=== PATIENT | female | born 1950 | race Caucasian/White ===

== ENCOUNTER 2016-12-10 05:38 | Inpatient (IN) | payer BC, OTHER ==
[~2016-12-10] VITALS: Ht 165.1 cm; Wt 66.3 kg
[2016-12-10] MEDS ORDERED: OPTIRAY 320 IV PRN (06:00)
--- NOTE | 2016-12-10 06:03 | EMERGENCY ROOM VISIT NOTE ---
History Report prepared by Rohan: Deep Garcia Under the Supervision of: Dr. Brianna Sagastume D.O. First contact with patient: 05:47 Chief Complaint: ABDOMINAL PAIN Stated Complaint: PAIN LWR MDL STOMACH MOVED TO LWR RT SIDE History of Present Illness The patient is a 66 year old female who presents to the Emergency Room with complaints of waxing and waning abdominal pain for the past 3 days. The patient describes the discomfort in the middle of her lower abdomen and states that she was having very sharp pains. The patient also complains of nausea and vomiting and feeling hot. She states that she had similar symptoms 2 months ago, but they were not as severe. The discomfort has progressively moved to her lower right side over the past few days.The patient also complains of constipation and states that she has had decreased food and fluid intake since the discomfort started. She has been taking Tylenol which has helped relieve her symptoms somewhat. She denies sore throat, cough, or urinary symptoms at this time. Source of History: patient Onset: 3 days ago Position: abdomen (RLQ) Symptom Intensity: severe Quality: sharp Timing: waxes/wanes Associated Symptoms: + nausea, + vomiting, No cough, No sorethroat, No urinary symptoms Note: Other associated symptoms: feeling hot, constipated, decreased appetite and fluid intake Review of Systems See HPI for pertinent positives & negatives. A total of 10 systems reviewed and were otherwise negative. Past Medical & Surgical Medical Problems: (1) Skin problem (2) Tonsillectomy planned Surgical Problems: (1) H/O adenoidectomy Family History FH: cancer FH: diabetes mellitus FH: gallbladder disease FH: heart disease FH: hypertension Social History Smoking Status: Never Smoker Alcohol Use: none Marital Status: Housing Status: lives with significant other Occupation Status: employed Current/Historical Medications No Active Prescriptions or Reported Meds Allergies Uncoded Allergies: ENVIRONMENTAL (Adverse Reaction, Intermediate, various, 12/10/16) Physical Exam Vital Signs Date Time Temp Pulse Resp B/P Pulse Ox O2 Delivery O2 Flow Rate FiO2 12/10/16 06:39 81 20 133/73 93 Room Air 12/10/16 05:40 37.4 86 18 139/83 96 Room Air Physical Exam HEENT: Head - normocephalic and atraumatic Pupils are equal, round, and reactive to light. Extraocular eye muscles are intact, and sclera are anicteric. Nose - moist nasal mucosa without discharge. Mouth - moist buccal mucosa. Oropharynx is nonerythematous and there is no tonsillar exudate or edema noted. Neck: Supple; no JVD, nuchal rigidity, cervical lymphadenopathy. Heart: Regular rate and rhythm. There is a normal S1 and S2 with no murmurs, clicks, or gallops appreciated. Lungs: Clear to auscultation bilaterally with no wheezes, rales, or rhonchi. Abdomen: Soft, exquisite tenderness in RLQ, nondistended, with good bowel sounds. There are no palpable pulsatile masses or hepatosplenomegaly. There is no guarding, rigidity, or rebound noted. Extremities: No evidence of cyanosis, clubbing, or edema. There are easily palpable peripheral pulses. Skin: warm and dry with good turgor and no rashes. Medical Decision & Procedures ER Provider Diagnostic Interpretation: CT results as stated below per my review and radiologist interpretation: CT OF THE ABDOMEN AND PELVIS WITH CONTRAST CLINICAL HISTORY: Right lower quadrant pain. COMPARISON STUDY: None. TECHNIQUE: Following IV administration of 119 mL of Optiray-320, axial images of the abdomen and pelvis were obtained from the lung bases to the proximal femurs. Images were reviewed in the axial, sagittal, and coronal planes. IV contrast was administered without complication. CT DOSE: 250.14 mGy.cm FINDINGS: Visualized portions of the lower chest demonstrate a segmental pulmonary embolus within the right lower lobe. A subpleural opacity within the right lower lobe favors an infarct. The liver, spleen, adrenal glands and pancreas are normal. There are multiple subcentimeter renal lesions which are too small to characterize. There is no evidence for a bowel obstruction. The appendix is normal. There is sigmoid diverticulosis. Note is made of a 4 x 2.2 cm fluid and gas containing pelvic fluid collection adjacent to the mid sigmoid colon which is consistent with an abscess. There is adjacent infiltration. Findings reflect acute diverticulitis with associated abscess. The endometrium appears thickened. No suspicious skeletal lesions are identified. IMPRESSION: 1. Right lower lobe segmental pulmonary embolus, likely acute, and a subpleural opacity within the right lower lobe suggestive of a pulmonary infarct. 2. Findings consistent with acute sigmoid diverticulitis with an associated 4 x 2.2 cm pericolonic abscess adjacent to the mid sigmoid colon. 3. Thickened endometrium. This could be correlated with history of postmenopausal bleeding and a follow-up nonemergent pelvic ultrasound. Electronically signed by: Vasile Sarabia M.D. 12/10/2016 6:49 AM Dictated Date/Time: 12/10/2016 6:40 AM Laboratory Results 12/10/16 06:00 Red Blood Count 4.70, Mean Corpuscular Volume 91.9, Mean Corpuscular Hemoglobin 31.1, Mean Corpuscular Hemoglobin Concent 33.8, Mean Platelet Volume 9.8, Neutrophils (%) (Auto) 84.6, Lymphocytes (%) (Auto) 8.9, Monocytes (%) (Auto) 5.4, Eosinophils (%) (Auto) 0.6, Basophils (%) (Auto) 0.2, Neutrophils # (Auto) 14.95, Lymphocytes # (Auto) 1.58, Monocytes # (Auto) 0.96, Eosinophils # (Auto) 0.10, Basophils # (Auto) 0.03 12/10/16 06:00 Test 12/10/16 06:00 12/10/16 06:11 12/10/16 07:09 White Blood Count 17.67 K/uL (4.8-10.8) Red Blood Count 4.70 M/uL (4.2-5.4) Hemoglobin 14.6 g/dL (12.0-16.0) Hematocrit 43.2 % (37-47) Mean Corpuscular Volume 91.9 fL (80-100) Mean Corpuscular Hemoglobin 31.1 pg (25-34) Mean Corpuscular Hemoglobin Concent 33.8 g/dl (32-36) Platelet Count 267 K/uL (130-400) Mean Platelet Volume 9.8 fL (7.4-10.4) Neutrophils (%) (Auto) 84.6 % Lymphocytes (%) (Auto) 8.9 % Monocytes (%) (Auto) 5.4 % Eosinophils (%) (Auto) 0.6 % Basophils (%) (Auto) 0.2 % Neutrophils # (Auto) 14.95 K/uL (1.4-6.5) Lymphocytes # (Auto) 1.58 K/uL (1.2-3.4) Monocytes # (Auto) 0.96 K/uL (0.11-0.59) Eosinophils # (Auto) 0.10 K/uL (0-0.5) Basophils # (Auto) 0.03 K/uL (0-0.2) RDW Standard Deviation 45.9 fL (36.4-46.3) RDW Coefficient of Variation 13.6 % (11.5-14.5) Immature Granulocyte % (Auto) 0.3 % Immature Granulocyte # (Auto) 0.05 K/uL (0.00-0.02) Est Creatinine Clear Calc Drug Dose 56.1 ml/min Estimated GFR () 77.8 Estimated GFR (Non- 67.1 BUN/Creatinine Ratio 14.7 (10-20) Calcium Level 9.1 mg/dl (8.5-10.1) Total Bilirubin 1.1 mg/dl (0.2-1) Aspartate Amino Transf (AST/SGOT) 23 U/L (15-37) Alanine Aminotransferase (ALT/SGPT) 44 U/L (12-78) Alkaline Phosphatase 136 U/L (45-117) Total Protein 8.0 gm/dl (6.4-8.2) Albumin 3.5 gm/dl (3.4-5.0) Globulin 4.5 gm/dl (2.5-4.0) Albumin/Globulin Ratio 0.8 (0.9-2) Lipase 65 U/L (73-393) Bedside Hemoglobin 15.3 g/dl (12.0-16.0) Bedside Hematocrit 45 % (37-47) Bedside Sodium 139 mEq/L (135-144) Bedside Potassium 3.5 mEq/L (3.3-5.0) Bedside Chloride 99 mEq/L (101-112) Bedside Total CO2 27 mEq/l (24-31) Anion Gap 18.0 mmol/L (16-25) Bedside Blood Urea Nitrogen 14 mg/dl (7-18) Bedside Creatinine 0.8 mg/dl (0.6-1.3) Bedside Glucose (other) 108 mg/dl (70-99) Bedside Ionized Calcium (Arely) 1.10 mmol/l (1.12-1.32) Laboratory results per my review. Medications Administered Medications (Trade) Dose Ordered Sig/Marilou Route Start Time Stop Time Status Last Admin Dose Admin Hydromorphone HCl (Dilaudid Inj) 1 mg NOW STAT IV 12/10/16 06:50 12/10/16 06:51 DC 12/10/16 06:54 1 MG Procedure Dilaudid Inj IV Zosyn Iv IV Heparin Drip ED Course 0549: Past medical records reviewed. The patient was evaluated in room B3. A complete history and physical exam was performed. An IV lock was initiated and labs were drawn as above. I-STAT was obtained and creatinine was normal. The patient will go for a CT scan of the abdomen/pelvis to rule out diverticulitis and appendicitis. 0638: At this time, I reevaluated the patient and she was having some pain. Medications will be ordered for the patient. 0650: Ordered Dilaudid Inj 1 mg IV. 0655: At this time, I reevaluated the patient and updated her on her results. After her results, the patient still denies having chest pain or shortness of breath at this time. 0700: Ordered Zosyn Iv 4.5 gm IV. 0701: At this time, I discussed the patient's case with Dr. Huber - General Surgery [facility] [place] and he recommended keeping the patient here and said he would consult with Medicine. He advised starting the patient on a Heparin Drip would be okay. 0705: A Heparin Drip was started on the patient. 0706: At this time, I discussed the patient's case with Dr. Pillai - Hospitalist [facility] [place] and she agreed to accept the patient for further evaluation. Medical Decision The patient is a 66 year old female who presents to the ED with abdominal pain. Differential diagnosis includes appendicitis, diverticulitis, colitis, or cystitis. Labs reviewed by me: white count 17.6, 84% neutrophils, stable H&H,normal renal function, glucose 108, lipase normal, total bilirubin 1.1, alkaline phosphatase 136, normal transanimases. I attest that I have personally reviewed the patient's current medication list - she is not on any medications. Patient was found to have normal blood pressure on screening and does not require follow-up. The patient presents with right lower quadrant abdominal pain. CT scan reveals evidence of a diverticular abscess with associated diverticulitis. Incidentally , the patient was noted to have right lower pulmonary emboli with presumed pulmonary infarct. I added blood cultures. She received IV antibiotics. She is in no acute respiratory distress. She has no chest pain on exam. Consults Time Called: [phone] Consulting Physician: Dr. Huber - General Surgery [facility] [place] Returned Call: [phone] At this time, I discussed the patient's case with Dr. Huber and he recommended keeping the patient here and said he would consult with Medicine. He advised starting the patient on a Heparin Drip. Additional Consults: Time Called: 701 Consulted Physician: Dr. Pillai - Hospitalist [facility] [place] Returned Call: [phone] Additional Comments: At this time, I discussed the patient's case with Dr. Pillai and she agreed to accept the patient for further evaluation. Impression Primary Impression: Colonic diverticular abscess Additional Impressions: Pulmonary embolism Pulmonary infarct Scribe Attestation The scribe's documentation has been prepared under my direction and personally reviewed by me in its entirety. I confirm that the note above accurately reflects all work, treatment, procedures, and medical decision making performed by me. Departure Information Dispostion Being Evaluated By Hospitalist Prescriptions No Active Prescriptions or Reported Meds Referrals Krunal Kimbrough M.D. (PCP) Problem Qualifiers
[2016-12-10 06:14] LABS: BASO % 0.2 %; BASO ABS # 0.03 K/uL (0-0.2); COMPLETE YES; EOS % 0.6 %; HEMATOCRIT 43.2 % (37-47); IG% 0.3 %; LYMPH % 8.9 %; LYMPH ABS # 1.58 K/uL (1.2-3.4); MEAN CELL VOLUME 91.9 fL (80-100); MEAN CORPUSCULAR HEMOGLOBIN 31.1 pg (25-34); MEAN CORPUSCULAR HGB CONC 33.8 g/dl (32-36); MEAN PLATELET VOLUME 9.8 fL (7.4-10.4); MONO % 5.4 %; NEUT % 84.6 %; PLATELET COUNT 267 K/uL (130-400); WHITE BLOOD COUNT 17.67 K/uL (4.8-10.8)
[2016-12-10 06:24] LABS: ISTAT CREATININE 0.8 mg/dl (0.6-1.3); ISTAT HEMOGLOBIN 15.3 g/dl (12.0-16.0); ISTAT IONIZED CALCIUM 1.1 mmol/l (1.12-1.32)
[2016-12-10 06:28] LABS: BUN/CREATININE RATIO 14.7 (10-20); CALCIUM 9.1 mg/dl (8.5-10.1); CREATININE 0.9 mg/dl (0.60-1.20); POTASSIUM 3.5 mmol/L (3.5-5.1)
[2016-12-10 06:31] LABS: ALB/GLOB RATIO 0.8 (0.9-2)
[2016-12-10] MEDS ORDERED: HYDROmorphone INJ 1 MG/ML SYR IV STA (06:50)
--- NOTE | 2016-12-10 06:50 | DIAGNOSTIC IMAGING REPORT ---
CT OF THE ABDOMEN AND PELVIS WITH CONTRAST CLINICAL HISTORY: Right lower quadrant pain. COMPARISON STUDY: None. TECHNIQUE: Following IV administration of 119 mL of Optiray-320, axial images of the abdomen and pelvis were obtained from the lung bases to the proximal femurs. Images were reviewed in the axial, sagittal, and coronal planes. IV contrast was administered without complication. CT DOSE: 250.14 mGy.cm FINDINGS: Visualized portions of the lower chest demonstrate a segmental pulmonary embolus within the right lower lobe. A subpleural opacity within the right lower lobe favors an infarct. The liver, spleen, adrenal glands and pancreas are normal. There are multiple subcentimeter renal lesions which are too small to characterize. There is no evidence for a bowel obstruction. The appendix is normal. There is sigmoid diverticulosis. Note is made of a 4 x 2.2 cm fluid and gas containing pelvic fluid collection adjacent to the mid sigmoid colon which is consistent with an abscess. There is adjacent infiltration. Findings reflect acute diverticulitis with associated abscess. The endometrium appears thickened. No suspicious skeletal lesions are identified. IMPRESSION: 1. Right lower lobe segmental pulmonary embolus, likely acute, and a subpleural opacity within the right lower lobe suggestive of a pulmonary infarct. 2. Findings consistent with acute sigmoid diverticulitis with an associated 4 x 2.2 cm pericolonic abscess adjacent to the mid sigmoid colon. 3. Thickened endometrium. This could be correlated with history of postmenopausal bleeding and a follow-up nonemergent pelvic ultrasound. Electronically signed by: Vasile Sarabia M.D. 12/10/2016 6:49 AM Dictated Date/Time: 12/10/2016 6:40 AM
[2016-12-10] MEDS ORDERED: PIPERACILLIN/TAZOBACTAM 4.5 GM/100ML D5W IV STA (07:00)
[2016-12-10 07:23] LABS: PARTIAL THROMBOPLASTIN RATIO 1.2; PROTHROMBIN TIME (PATIENT) 10.3 SECONDS (9.0-12.0)
[2016-12-10 07:34] VITALS: O2SAT 96; Ht 165.1 cm; Wt 66.3 kg
--- NOTE | 2016-12-10 07:40 | Medical Consult ---
Consultation Date of Consultation: December 10, 2016. Attending Physician: Reason for Consultation: perforated diverticulitis History of Present Illness presents to ER with abd pain over 2-3 days- w/u shows diverticulitis with 4x2 cm pelvic abscess, no ascites or free air. also Rt lung PE w/ infarct Past Medical/Surgical History Medical Problems: (1) Colonic diverticular abscess Status: Acute (2) Pulmonary embolism Status: Acute (3) Pulmonary infarct Status: Acute Family History FH: cancer FH: diabetes mellitus FH: gallbladder disease FH: heart disease FH: hypertension Social History Smoking Status: Never Smoker Marital Status: Housing Status: lives with significant other Occupation Status: employed Allergies Uncoded Allergies: ENVIRONMENTAL (Adverse Reaction, Intermediate, various, 12/10/16) Current Inpatient Medications Current Inpatient Medications Medications (Trade) Dose Ordered Sig/Marilou Route Start Time Stop Time Status Last Admin Dose Admin Ioversol (Optiray 320) 125 ml UD PRN IV 12/10/16 06:00 12/14/16 05:59 Heparin Sodium/ Dextrose 1 ea Q30M N/A 12/10/16 07:30 12/10/16 23:59 Review of Systems Constitutional: No fever Respiratory: No cough, No shortness of breath Cardiovascular: No chest pain Abdomen: + pain, No vomiting Genitourinary - Female: No dysuria Neurologic: No weakness Hematologic / Lymphatic: No abnormal bleeding/bruising, No clotting problems Integumentary: No rash Physical Exam Date Time Temp Pulse Resp B/P Pulse Ox O2 Delivery O2 Flow Rate FiO2 12/10/16 06:39 81 20 133/73 93 Room Air 12/10/16 05:40 37.4 86 18 139/83 96 Room Air afeb, vss General Appearance: no apparent distress Eyes: sclerae normal Neck: supple Respiratory/Chest: normal breath sounds Cardiovascular: regular rate, rhythm Abdomen/GI: soft, + tenderness (mostly RLQ) Extremities/Musculoskelatal: no calf tenderness, no pedal edema Neurologic/Psych: alert Skin: no rash Laboratory Results Last 24 Hours Test 12/10/16 06:00 12/10/16 06:11 12/10/16 07:28 White Blood Count 17.67 K/uL Red Blood Count 4.70 M/uL Hemoglobin 14.6 g/dL Hematocrit 43.2 % Mean Corpuscular Volume 91.9 fL Mean Corpuscular Hemoglobin 31.1 pg Mean Corpuscular Hemoglobin Concent 33.8 g/dl Platelet Count 267 K/uL Mean Platelet Volume 9.8 fL Neutrophils (%) (Auto) 84.6 % Lymphocytes (%) (Auto) 8.9 % Monocytes (%) (Auto) 5.4 % Eosinophils (%) (Auto) 0.6 % Basophils (%) (Auto) 0.2 % Neutrophils # (Auto) 14.95 K/uL Lymphocytes # (Auto) 1.58 K/uL Monocytes # (Auto) 0.96 K/uL Eosinophils # (Auto) 0.10 K/uL Basophils # (Auto) 0.03 K/uL RDW Standard Deviation 45.9 fL RDW Coefficient of Variation 13.6 % Immature Granulocyte % (Auto) 0.3 % Immature Granulocyte # (Auto) 0.05 K/uL Prothrombin Time 10.3 SECONDS Prothromb Time International Ratio 1.0 Activated Partial Thromboplast Time 30.6 SECONDS Partial Thromboplastin Ratio 1.2 Sodium Level 140 mmol/L Potassium Level 3.5 mmol/L Chloride Level 103 mmol/L Carbon Dioxide Level 30 mmol/L Anion Gap 7.0 mmol/L 18.0 mmol/L Blood Urea Nitrogen 13 mg/dl Creatinine 0.90 mg/dl Est Creatinine Clear Calc Drug Dose 56.1 ml/min Estimated GFR () 77.8 Estimated GFR (Non- 67.1 BUN/Creatinine Ratio 14.7 Random Glucose 104 mg/dl Calcium Level 9.1 mg/dl Total Bilirubin 1.1 mg/dl Aspartate Amino Transf (AST/SGOT) 23 U/L Alanine Aminotransferase (ALT/SGPT) 44 U/L Alkaline Phosphatase 136 U/L Total Protein 8.0 gm/dl Albumin 3.5 gm/dl Globulin 4.5 gm/dl Albumin/Globulin Ratio 0.8 Lipase 65 U/L Bedside Hemoglobin 15.3 g/dl Bedside Hematocrit 45 % Bedside Sodium 139 mEq/L Bedside Potassium 3.5 mEq/L Bedside Chloride 99 mEq/L Bedside Total CO2 27 mEq/l Bedside Blood Urea Nitrogen 14 mg/dl Bedside Creatinine 0.8 mg/dl Bedside Glucose (other) 108 mg/dl Bedside Ionized Calcium (Arely) 1.10 mmol/l Assessment & Plan 12/10/16- pt w/ acute diverticulitis w/ contained abscess in pelvis- difficult location for IR- initial treatment would be NPO, then clear liquids, IV atbx- Zosyn, Flagyl- may need PICC for home IV atbx. re CT 3-4 days IV anticoagulants (Heparin) initially until sure abd stable. IF abscess enlarges- transfer for IR. Consider Heme consult to address PE/DVT will need 5-7 days in hospital
[2016-12-10] MEDS ORDERED: HEPARIN SOD 5000 UNIT/0.5 ML CARP ONE (07:44)
[2016-12-10] MEDS ORDERED: HEPARIN 25000 UNIT/500 ML D5W ONE (07:44)
[2016-12-10] MEDS ORDERED: SODIUM CHLORIDE 0.9% 1000ML 1,000 ML IV SCH (07:55)
[2016-12-10] MEDS ORDERED: MAGNESIUM HYDROXIDE SUSP 30 ML UDC PO PRN (08:00)
[2016-12-10] MEDS ORDERED: POLYETHYLENE (MIRALAX) 17 GM PACK PO PRN (08:00)
[2016-12-10] MEDS ORDERED: ALUMINUM/MAGNESIUM/SIMETH (MAALOX MAX) 30 ML UDC PO PRN (08:00)
[2016-12-10] MEDS ORDERED: ONDANSETRON INJ 2 MG/ML 2 ML VIAL IV PRN (08:00)
[2016-12-10] MEDS ORDERED: HYDROmorphone INJ 2 MG/ML SYR/VIAL IV PRN (08:15)
[2016-12-10] MEDS ORDERED: HYDROmorphone INJ 1 MG/ML SYR IV PRN ×2 (08:15)
--- NOTE | 2016-12-10 08:23 | History and Physical ---
History & Physical Date & Time of Service: December 10, 2016 at 08:19 Chief Complaint: Pain Lwr Mdl Stomach Moved To Lwr Rt Side Primary Care Physician: Krunal Kimbrough M.D. History of Present Illness Source: patient Ms. Guzmán is a 66 y/o Post-Menopausal female with an unremarkable PMHx except for vitiligo who presents to the ED complaining of abdominal pain x 3 days. Pain came on suddenly and originated periumbilically then moved to the RLQ which it has remained. She describes the pain as a waxing and waning sharp sensation that can exacerbate to a 10/10. Aggravated by palpation and alleviated minimally with Tylenol. Associated nausea and vomiting with last emesis on . Associated poor oral intake and constipation with last BM on without evidence of melena/hematochezia. She reports similar symptoms in September that lasted a couple days and subsided but the pain was not as severe at that time. After those symptoms subsided she felt her normal self up until these last couple of days. ED imaging revealed acute diverticulitis with fluid and gas filled abscess. Incidentally, R segmental pulmonary emboli noted with RLL infarct. She denies H/O clotting disorders or DVT/PE personally and in the family. As well, CT showed a thickened endometrium and patient denies post-menopausal bleeding. Does report a FMHx of a mother with cancerous uterine tumor who was on hormonal replacement therapy. Past Medical/Surgical History Medical Problems: (1) Skin problem Status: Chronic (2) Tonsillectomy planned Status: Resolved Surgical Problems: (1) H/O adenoidectomy Status: Resolved Family History FH: cancer MOTHER (Uterine Tumor) FH: diabetes mellitus FH: gallbladder disease FH: heart disease FH: hypertension Social History Smoking Status: Never Smoker Smokeless Tobacco Use: No Drug Use: none Marital Status: Occupational Status: employed Multi-Drug Resistant Organisms History of MDRO: No Allergies Uncoded Allergies: ENVIRONMENTAL (Adverse Reaction, Intermediate, various, 12/10/16) Home Medications No Active Prescriptions or Reported Meds Review of Systems Constitutional: + fever, + problem reported ("feel hot"), No chills Eyes: No worsening of vision ENT: No nasal symptoms, No sore throat, No trouble swallowing Respiratory: No cough, No shortness of breath, No wheezing Cardiovascular: No chest pain, No palpitations Abdomen: + nausea, + pain (mid-abdomen with movement to RLQ), + problem reported (Last BM ), + vomiting (last emesis ), No constipation , No diarrhea Musculoskeletal: No calf pain, No swelling Genitourinary - Female: No dysuria, No vaginal bleeding Neurologic: No vertigo Hematologic / Lymphatic: No abnormal bleeding/bruising, No clotting problems Integumentary: No new/changing skin lesions, No rash Allergic / Immunologic: + environmental allergies Physical Exam Vital Signs Date Time Temp Pulse Resp B/P Pulse Ox O2 Delivery O2 Flow Rate FiO2 12/10/16 06:39 81 20 133/73 93 Room Air 12/10/16 05:40 37.4 86 18 139/83 96 Room Air General Appearance: WD/WN, no apparent distress Head: normocephalic, atraumatic Eyes: sclerae normal ENT: hearing grossly normal Neck: supple, no JVD, trachea midline Respiratory/Chest: lungs clear, no respiratory distress, no accessory muscle use, + decreased breath sounds (minimally decreased in R base) Cardiovascular: regular rate, rhythm, no gallop, no murmur Abdomen/GI: normal bowel sounds, soft Back: normal inspection, no CVA tenderness Extremities/Musculoskelatal: no calf tenderness, no pedal edema Neurologic/Psych: no motor/sensory deficits, alert, oriented x 3 Skin: normal color, warm/dry, + pertinent finding (vitiligo) Diagnostics Laboratory Results Results Past 24 Hours Test 12/10/16 06:00 12/10/16 06:11 12/10/16 07:23 12/10/16 07:28 Range/Units White Blood Count 17.67 4.8-10.8 K/uL Red Blood Count 4.70 4.2-5.4 M/uL Hemoglobin 14.6 12.0-16.0 g/dL Hematocrit 43.2 37-47 % Mean Corpuscular Volume 91.9 80-100 fL Mean Corpuscular Hemoglobin 31.1 25-34 pg Mean Corpuscular Hemoglobin Concent 33.8 32-36 g/dl Platelet Count 267 130-400 K/uL Mean Platelet Volume 9.8 7.4-10.4 fL Neutrophils (%) (Auto) 84.6 % Lymphocytes (%) (Auto) 8.9 % Monocytes (%) (Auto) 5.4 % Eosinophils (%) (Auto) 0.6 % Basophils (%) (Auto) 0.2 % Neutrophils # (Auto) 14.95 1.4-6.5 K/uL Lymphocytes # (Auto) 1.58 1.2-3.4 K/uL Monocytes # (Auto) 0.96 0.11-0.59 K/uL Eosinophils # (Auto) 0.10 0-0.5 K/uL Basophils # (Auto) 0.03 0-0.2 K/uL RDW Standard Deviation 45.9 36.4-46.3 fL RDW Coefficient of Variation 13.6 11.5-14.5 % Immature Granulocyte % (Auto) 0.3 % Immature Granulocyte # (Auto) 0.05 0.00-0.02 K/uL Prothrombin Time 10.3 9.0-12.0 SECONDS Prothromb Time International Ratio 1.0 0.9-1.1 Activated Partial Thromboplast Time 30.6 21.0-31.0 SECONDS Partial Thromboplastin Ratio 1.2 Sodium Level 140 136-145 mmol/L Potassium Level 3.5 3.5-5.1 mmol/L Chloride Level 103 98-107 mmol/L Carbon Dioxide Level 30 21-32 mmol/L Anion Gap 7.0 18.0 16-25 mmol/L Blood Urea Nitrogen 13 7-18 mg/dl Creatinine 0.90 0.60-1.20 mg/dl Est Creatinine Clear Calc Drug Dose 56.1 ml/min Estimated GFR () 77.8 Estimated GFR (Non- 67.1 BUN/Creatinine Ratio 14.7 10-20 Random Glucose 104 70-99 mg/dl Calcium Level 9.1 8.5-10.1 mg/dl Total Bilirubin 1.1 0.2-1 mg/dl Aspartate Amino Transf (AST/SGOT) 23 15-37 U/L Alanine Aminotransferase (ALT/SGPT) 44 12-78 U/L Alkaline Phosphatase 136 45-117 U/L Total Protein 8.0 6.4-8.2 gm/dl Albumin 3.5 3.4-5.0 gm/dl Globulin 4.5 2.5-4.0 gm/dl Albumin/Globulin Ratio 0.8 0.9-2 Lipase 65 73-393 U/L Bedside Hemoglobin 15.3 12.0-16.0 g/dl Bedside Hematocrit 45 37-47 % Bedside Sodium 139 135-144 mEq/L Bedside Potassium 3.5 3.3-5.0 mEq/L Bedside Chloride 99 101-112 mEq/L Bedside Total CO2 27 24-31 mEq/l Bedside Blood Urea Nitrogen 14 7-18 mg/dl Bedside Creatinine 0.8 0.6-1.3 mg/dl Bedside Glucose (other) 108 70-99 mg/dl Bedside Ionized Calcium (Arely) 1.10 1.12-1.32 mmol/l Bedside Lactic Acid Venous 0.60 0.90-1.70 mmol/L Microbiology Results 12/10/16 Blood Culture, Received Pending 12/10/16 Blood Culture, Received Pending Diagnostic Radiology 1. CT OF THE ABDOMEN AND PELVIS WITH CONTRAST FINDINGS: Visualized portions of the lower chest demonstrate a segmental pulmonary embolus within the right lower lobe. A subpleural opacity within the right lower lobe favors an infarct. The liver, spleen, adrenal glands and pancreas are normal. There are multiple subcentimeter renal lesions which are too small to characterize. There is no evidence for a bowel obstruction. The appendix is normal. There is sigmoid diverticulosis. Note is made of a 4 x 2.2 cm fluid and gas containing pelvic fluid collection adjacent to the mid sigmoid colon which is consistent with an abscess. There is adjacent infiltration. Findings reflect acute diverticulitis with associated abscess. The endometrium appears thickened. No suspicious skeletal lesions are identified. IMPRESSION: 1. Right lower lobe segmental pulmonary embolus, likely acute, and a subpleural opacity within the right lower lobe suggestive of a pulmonary infarct. 2. Findings consistent with acute sigmoid diverticulitis with an associated 4 x 2.2 cm pericolonic abscess adjacent to the mid sigmoid colon. 3. Thickened endometrium. This could be correlated with history of postmenopausal bleeding and a follow-up nonemergent pelvic ultrasound. Impression Assessment and Plan Ms. Guzmán is a 66 y/o Post-Menopausal female with an unremarkable PMHx who presents to the ED complaining of abdominal pain x [address] revealed acute diverticulitis with abscess and pulmonary emboli with RLL infarct. CT with evidence of endometrum thickening. Acute Diverticulitis with Abscess: - NPO at this time and place IVF with 1/2 NSS + 20 mEq KCL at 100 mL/hr - Metronidazole 500 mg IV Q8H and Zosyn 3.375 IV Q8H - Dilaudid 0.5-2 mg IV Q4H PRN Pain - General Surg following - recommendations reviewed -- Difficult location for IR - recommending NPO then clear liquids if tolerated -- Repeat CT 3-4 days - if enlarging transfer for IR Pulmonary Emboli with RLL Infarct: Inflammation vs Endometrial CA? - Heparin bolus and drip initiated - B/L LE Venous dopplers for DVT evaluation - Consult Heme/Onc - recommendations appreciated Thickened Endometrium: Denies vaginal bleeding - CT Abd/Pelvis reviewed - will order nonemergent pelvic U/S for further evaluation DVT Prophylaxis: Heparin gtt Code Status: FULL RESUSCITATION Disposition: From home and independent - Will need co-pay evaluated in [facility] for anticoaculation warranted - May need PICC for home IV ABx per Gen Surg Level of Care Telemetry Resuscitation Status FULL RESUSCITATION VTE Prophylaxis VTE Risk Assessment Done? Y/N: Yes Risk Level: High Given or contraindicated: Other Anticoagulation (Heparin gtt) Social Service Consult None Apply Reviewed: Pt Seen/Exam by Me History Physician Electroencephalograph Technician Supervision Note: I interviewed and examined the patient. Discussed with RENAY Green and agree with findings and plan as documented in the note. Any exceptions or clarifications are listed here: Patient admitted with large diverticular abscess and incidental finding of right lower lobe segmental acute PE with pulmonary infarct. She has never had a colonoscopy. Pelvic ultrasound after admission confirmed thickened endometrial stripe of 9 mm. She has not seen [facility] or had a mammogram in over 2 years. She has a daily runner and runs 5 miles every day; she is not noticed any pain or swelling in her legs ever. She was found on bilateral lower extremity Doppler to have evidence of chronic bilateral superficial femoral vein DVTs. 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 No other significant findings of autoimmune disease. Vitals reviewed No acute distress, alert awake oriented 3 Regular rate and rhythm, no murmurs gallops or rubs Lungs clear to auscultation bilaterally, breathing unlabored Abdomen positive bowel sounds, soft, minimally tender in the right periumbilical region without guarding or rebound Extremities negative Homans sign bilaterally, no edema, 2 posterior cells pedis ulcers, no calf tenderness, arms without any edema 66-year-old very healthy and active female here with acute diverticulitis with large diverticular abscess and incidental finding of segmental right lower lobe acute PE with pulmonary infarct. She is not septic and her lactic acid is normal. -Nothing by mouth, continue IV fluids -Continue Zosyn and Flagyl and repeat CT in 3-4 days as per general surgery- appreciate them following and the recommendations -Consider transfer to [facility] for IR drainage of abscess if worsening or not improving -For her acute PE and chronic DVTs, is on heparin drip and should remain on this alone until her diverticular abscess gets sorted out. This could be from underlying malignancy or autoimmune disease. It is certainly not from a sedentary lifestyle she is a daily runner. -Will definitely need outpatient [facility] follow-up with endometrial biopsy although perhaps this would be better performed in the hospital if [facility] would prefer for her heparin drip to be off for the procedure. She also is overdue for colonoscopy-will Hemoccult her stool she is here. She is also overdue for a mammogram and she can have done as an outpatient. -Long-term anticoagulation to be determined-suggest going on Lovenox injections in case there is an underlying malignancy as this is considered standard of care Documented By: Erica Pillai
--- NOTE | 2016-12-10 09:28 | DIAGNOSTIC IMAGING REPORT ---
BILATERAL LOWER EXTREMITY VENOUS DOPPLER CLINICAL HISTORY: Pulmonary embolism. COMPARISON STUDY: No previous studies for comparison. TECHNIQUE: Sonography of the deep venous system of the bilateral lower extremities was performed. Compression and augmentation were evaluated. FINDINGS: The common femoral, superficial femoral and popliteal veins were compressible. Augmentation was normal. Flow was shown within the deep calf vessels. Stranding within the bilateral superficial femoral veins likely reflects a chronic finding. There is no evidence for acute deep venous thrombus within either lower extremity. IMPRESSION: 1. No evidence of acute deep venous thrombus within the lower extremities. 2. Stranding within the bilateral superficial femoral veins which suggests chronic thrombus. Electronically signed by: Vasile Sarabia M.D. 12/10/2016 9:27 AM Dictated Date/Time: 12/10/2016 9:25 AM
--- NOTE | 2016-12-10 09:29 | DIAGNOSTIC IMAGING REPORT ---
PELVIC ULTRASOUND CLINICAL HISTORY: Endometrium thickening on CT COMPARISON STUDY: CT of the abdomen and pelvis performed earlier today. TECHNIQUE: Transabdominal and transvaginal sonography of the pelvis was performed. FINDINGS: The uterus measures 7.2 x 3.2 x 4.4 cm. The endometrium is thickened, measuring 9 mm in thickness. Neither ovary was visualized due to suboptimal penetration. There is no free fluid. IMPRESSION: 1. Mild endometrial thickening (9 mm) in a postmenopausal patient. Correlation with history of postmenopausal bleeding is recommended. Gynecologic consultation is suggested. 2. Nonvisualization of the ovaries. Electronically signed by: Vasile Sarabia M.D. 12/10/2016 9:28 AM Dictated Date/Time: 12/10/2016 9:27 AM
--- NOTE | 2016-12-10 09:38 | DIAGNOSTIC IMAGING REPORT ---
CHEST 2 VIEWS ROUTINE CLINICAL HISTORY: Hypoxia COMPARISON STUDY: No previous studies for comparison. FINDINGS: Lung volumes are normal. There is no pneumothorax or pleural effusion. Contrast within the renal collecting systems is from recent contrast-enhanced CT. There is no evidence of pulmonary edema. Cardiac size is normal. Mediastinal contours are normal. The right lower lobe airspace opacity shown on abdominal CT is not well visualized on this exam. IMPRESSION: No acute cardiopulmonary findings. Electronically signed by: Vasile Sarabia M.D. 12/10/2016 9:37 AM Dictated Date/Time: 12/10/2016 9:36 AM
[2016-12-10 09:47] VITALS: BP 123/78; PULSE 77; TEMP 37.1; O2SAT 96
[2016-12-10] MEDS: SODIUM CHLOR 0.45% + 20MEQ KCL 1,000 ML IV SCH ×2 (11:39→21:33)
[2016-12-10] MEDS: METRONIDAZOLE / NSS 500 MG in PREMIXED NSS 100 ML IV SCH ×2 (11:39→18:25)
--- NOTE | 2016-12-10 11:39 | Oncology Consultation ---
Oncology/Heme Consultation Date of Consultation: December 10, 2016. Attending Physician: Erica Pillai MD Reason for Consultation: History (recent diagnosis) of pulmonary embolus History of Present Illness was admitted after complaining of abdominal pain or experiencing Pierre pain for the past few days. She denies any blood in her stool. She denies any weight loss. She denies any definite history of fever or shaking chills. An abdominal CT scan would reveal changes consistent with diverticulitis and perhaps paracolonic abscess. It would also reveal findings of a pulmonary embolus.. She denies really any new shortness of breath. She states she runs 5 miles a day. She denies hemoptysis. Past medical history includes hyperthyroidism and she is aware of the term Graves' disease although it's unclear as to whether this abdomen reality has been characterized as that. She also has vitiligo. Past Medical/Surgical History Medical Problems: (1) Colonic diverticular abscess Status: Acute (2) Pulmonary embolism Status: Acute (3) Pulmonary infarct Status: Acute Family History FH: cancer MOTHER (Uterine Tumor) FH: diabetes mellitus FH: gallbladder disease FH: heart disease FH: hypertension No history of blood clots or blood clotting abnormalities in the family Social History Negative for significant smoking or alcohol usage Smoking Status: Never Smoker Smokeless Tobacco Use: No Drug Use: none Marital Status: Housing Status: lives with significant other Occupation Status: employed Allergies Uncoded Allergies: ENVIRONMENTAL (Adverse Reaction, Intermediate, various, 12/10/16) Home Medications No Active Prescriptions or Reported Meds Current Inpatient Medications Current Inpatient Medications Medications (Trade) Dose Ordered Sig/Mrailou Route Start Time Stop Time Status Last Admin Dose Admin Ioversol 125 ml 125 ml UD PRN IV 12/10/16 06:00 12/14/16 05:59 Metronidazole/Prmx (Flagyl / Nss/ Premixed Nss) 100 ml @ 100 mls/hr Q8@0200,1000,1800 IV 12/10/16 10:30 12/20/16 10:29 Acetaminophen (Tylenol Tab) 650 mg Q4H PRN PO 12/10/16 08:00 01/09/17 07:59 Al Hydrox/Mg Hydrox/Simethicone (Maalox Max Susp) 15 ml Q4H PRN PO 12/10/16 08:00 01/09/17 07:59 Magnesium Hydroxide (Milk Of Magncharles Susp) 30 ml Q12H PRN PO 12/10/16 08:00 01/09/17 07:59 Ondansetron HCl (Zofran Inj) 4 mg Q6H PRN IV 12/10/16 08:00 01/09/17 07:59 Polyethylene 17 gm 17 gm DAILY PRN PO 12/10/16 08:00 01/09/17 07:59 Piperacillin Sod/ Tazobactam Sod/ Dextrose (Zosyn Iv/D5 100ml) 115 ml @ 28.75 mls/ hr Q8H IV 12/10/16 14:00 12/20/16 13:59 Hydromorphone HCl (Dilaudid Inj) 0.5 mg Q4H PRN IV 12/10/16 08:15 12/24/16 08:14 Hydromorphone HCl (Dilaudid Inj) 1 mg Q4H PRN IV 12/10/16 08:15 12/24/16 08:14 Hydromorphone HCl 2 mg 2 mg Q4H PRN IV 12/10/16 08:15 12/24/16 08:14 Potassium Chloride/Sodium Chloride 1,000 ml @ 100 mls/hr Q10H IV 12/10/16 10:30 01/09/17 10:29 Heparin Sodium/ Dextrose (Heparin 25,000 Unit/500ml D5W) 500 ml @ 22 mls/hr [id number] PRN IV 12/10/16 10:30 01/09/17 10:29 Review of Systems Constitutional: Negative for weight loss, night sweats, or fever Eyes: Negative for event change of vision ENT: Negative for epistaxis, nasal discharge, sore throat, or deafness Cardiovascular: Negative for chest pain, palpitations, dizziness, diaphoresis Respiratory: Negative for new shortness of breath,hemoptysis, or purulent cough Gastrointestinal: Negative for diarrhea, hematemesis, melena, nausea, vomiting , or dyspepsia Integumentary (skin): Negative for rash or jaundice discoloration Genitourinary: Negative for urinary frequency, hematuria, or dysuria Neurological: Negative for weakness, seizure activity, headache, or dizziness Lymphatic/Hematologic: Negative for petechiae, bleeding or new adenopathy Musculoskeletal: Negative for new joint or back pain Allergic/Immunologic: Negative for unusual rash or pruritis. Physical Exam Date Time Temp Pulse Resp B/P Pulse Ox O2 Delivery O2 Flow Rate FiO2 12/10/16 09:47 37.1 77 20 123/78 96 Room Air 12/10/16 09:27 73 16 129/73 94 12/10/16 08:37 73 12/10/16 08:28 77 16 117/66 96 Room Air 12/10/16 07:34 96 Room Air 12/10/16 06:39 81 20 133/73 93 Room Air 12/10/16 05:40 37.4 86 18 139/83 96 Room Air Constitutional: vitals are stable. Alert pleasant female Eyes: Eyes are ANSELMO EOMI without conjuctival erythema or icterus. ENT: External examination was negative for masses. Neck: Negative for masses or palpable thyromegaly Respiratory: Lung sounds were generally clear bilaterally Cardiovascular: Heart was RRR without significant murmur, gallops aoe rubs Gastrointestinal: No palpable hepatic or splenomegaly. The abdomen was soft with normal bowel sounds. Lymphatic system: there was no palpable peripheral lymphadenopathy Musculoskeletal System: The musculoskeletal system seemed concordant with age. Skin: The skin was negative for jaundice. Positive for generalized vitiligo Neurologic exam: The exam was negative for any focal findings. Deep tendon reflexes were equal and symmetrical. Psychiatric exam: Was essentially negative with normal mood and effect. Breast exam: Not done Extremities: Negative for edema erythema or tenderness Laboratory Results Last 24 Hours Test 12/10/16 06:00 12/10/16 06:11 12/10/16 07:23 White Blood Count 17.67 K/uL Red Blood Count 4.70 M/uL Hemoglobin 14.6 g/dL Hematocrit 43.2 % Mean Corpuscular Volume 91.9 fL Mean Corpuscular Hemoglobin 31.1 pg Mean Corpuscular Hemoglobin Concent 33.8 g/dl Platelet Count 267 K/uL Mean Platelet Volume 9.8 fL Neutrophils (%) (Auto) 84.6 % Lymphocytes (%) (Auto) 8.9 % Monocytes (%) (Auto) 5.4 % Eosinophils (%) (Auto) 0.6 % Basophils (%) (Auto) 0.2 % Neutrophils # (Auto) 14.95 K/uL Lymphocytes # (Auto) 1.58 K/uL Monocytes # (Auto) 0.96 K/uL Eosinophils # (Auto) 0.10 K/uL Basophils # (Auto) 0.03 K/uL RDW Standard Deviation 45.9 fL RDW Coefficient of Variation 13.6 % Immature Granulocyte % (Auto) 0.3 % Immature Granulocyte # (Auto) 0.05 K/uL Prothrombin Time 10.3 SECONDS Prothromb Time International Ratio 1.0 Activated Partial Thromboplast Time 30.6 SECONDS Partial Thromboplastin Ratio 1.2 Sodium Level 140 mmol/L Potassium Level 3.5 mmol/L Chloride Level 103 mmol/L Carbon Dioxide Level 30 mmol/L Anion Gap 7.0 mmol/L 18.0 mmol/L Blood Urea Nitrogen 13 mg/dl Creatinine 0.90 mg/dl Est Creatinine Clear Calc Drug Dose 56.1 ml/min Estimated GFR () 77.8 Estimated GFR (Non- 67.1 BUN/Creatinine Ratio 14.7 Random Glucose 104 mg/dl Calcium Level 9.1 mg/dl Total Bilirubin 1.1 mg/dl Aspartate Amino Transf (AST/SGOT) 23 U/L Alanine Aminotransferase (ALT/SGPT) 44 U/L Alkaline Phosphatase 136 U/L Total Protein 8.0 gm/dl Albumin 3.5 gm/dl Globulin 4.5 gm/dl Albumin/Globulin Ratio 0.8 Lipase 65 U/L Bedside Hemoglobin 15.3 g/dl Bedside Hematocrit 45 % Bedside Sodium 139 mEq/L Bedside Potassium 3.5 mEq/L Bedside Chloride 99 mEq/L Bedside Total CO2 27 mEq/l Bedside Blood Urea Nitrogen 14 mg/dl Bedside Creatinine 0.8 mg/dl Bedside Glucose (other) 108 mg/dl Bedside Ionized Calcium (Arely) 1.10 mmol/l Bedside Lactic Acid Venous 0.60 mmol/L Assessment & Plan CT of the abdomen has changes consistent with right lower lobe pulmonary embolus as well as sigmoid diverticulitis and perhaps a pericolonic abscess. She currently is on heparin and would continue on that for now. Baseline PT and PTT are acceptable as his platelet count. I understand a repeat CT is being planned the next few days to see if this potential abscess is responding. If surgery is needed and an IVC filter will need to be placed. Dopplers of the lower extremities are suggestive changes of perhaps chronic thrombus of superficial femoral vein. She was unaware of any blood clotting issues in the past. If surgery is not needed than 3 months of anticoagulation seems reasonable. Because of her vitiligo and possible Graves' disease background anticardiopliin ab IgG and IgM will be drawn as well as an DANN. For now I would consider this a provoked thromboembolic incident
[2016-12-10] MEDS: PIPERACILL/TAZOBAC IV 3.375 GM in DEXTROSE 5% 100ML 100 ML IV SCH ×2 (14:32→21:32)
[2016-12-10 14:59] VITALS: BP 111/70; PULSE 74; TEMP 37.1; O2SAT 94
[2016-12-10] MEDS: ACETAMINOPHEN 325 MG TAB PO PRN (16:07)
[2016-12-10 16:19] LABS: PARTIAL THROMBOPLASTIN RATIO 1.8
[2016-12-10 19:59] LABS: URINE APPEARANCE CLEAR (CLEAR); URINE BILIRUBIN NEG (NEG); URINE COLOR DK YELLOW; URINE EPITHELIAL CELL AUTO >30 /lpf (0-5); URINE NITRITE NEG (NEG); URINE SPECIFIC GRAVITY > 1.045 (1.000-1.030); UROBILINOGEN NEG (NEG)
[2016-12-10 20:00] VITALS: O2SAT 94
[2016-12-10 20:02] VITALS: BP 120/75; PULSE 99; TEMP 37; O2SAT 97
[2016-12-10 20:02] LABS: MANUAL MICROSCOPIC REQUIRED? NO; REVIEW REQ? NO
[2016-12-10 23:00] VITALS: BP 115/70; PULSE 71; TEMP 36.9; O2SAT 95
[2016-12-11] VITALS (10 sets, daily range): BP systolic 108–166; BP diastolic 70–78; PULSE 68–83; TEMP 36.8–37.5; O2SAT 91–96
[2016-12-11] MEDS: ACETAMINOPHEN 325 MG TAB PO PRN (01:46)
[2016-12-11] MEDS: METRONIDAZOLE / NSS 500 MG in PREMIXED NSS 100 ML IV SCH ×3 (01:46→18:24)
[2016-12-11] MEDS: PIPERACILL/TAZOBAC IV 3.375 GM in DEXTROSE 5% 100ML 100 ML IV SCH ×3 (04:58→22:16)
[2016-12-11] MEDS: HEPARIN 25,000 UNIT/500ML D5W 500 ML IV PRN ×2 (04:58→08:32)
--- NOTE | 2016-12-11 07:00 | Surgery Progress Note ---
Surgery Progress Note Date of Service December 11, 2016. Subjective minimal abd pain- feels ok on IV Heparin Objective Vital Signs: Date Time Temp Pulse Resp B/P Pulse Ox O2 Delivery O2 Flow Rate FiO2 12/11/16 04:00 36.8 78 20 120/76 96 Room Air 12/11/16 04:00 94 Room Air 12/11/16 00:00 94 Room Air 12/10/16 23:00 36.9 71 16 115/70 95 Room Air 12/10/16 20:02 37.0 99 20 120/75 97 Room Air 12/10/16 20:00 94 Room Air 12/10/16 16:29 Room Air 12/10/16 14:59 37.1 74 18 111/70 94 Room Air 12/10/16 12:00 Room Air 12/10/16 09:47 37.1 77 20 123/78 96 Room Air 12/10/16 09:27 73 16 129/73 94 12/10/16 08:37 73 12/10/16 08:28 77 16 117/66 96 Room Air 12/10/16 07:34 96 Room Air General Appearance: no apparent distress Respiratory/Chest: no respiratory distress Cardiovascular: regular rate, rhythm Abdomen: soft (minimal tenderness) Laboratory Results: Results Past 24 Hours Test 12/10/16 07:23 12/10/16 12:31 12/10/16 15:58 12/10/16 19:35 Range/Units Bedside Lactic Acid Venous 0.60 0.90-1.70 mmol/L Thyroid Stimulating Hormone (TSH) 0.626 0.300-4.500 uIu/ml Activated Partial Thromboplast Time 47.5 21.0-31.0 SECONDS Partial Thromboplastin Ratio 1.8 Urine Color DK YELLOW Urine Appearance CLEAR CLEAR Urine pH 5.0 4.5-7.5 Urine Specific [place] > 1.045 1.000-1.030 Urine Protein 1+ NEG Urine Glucose (UA) NEG NEG Urine Ketones 1+ NEG Urine Occult Blood NEG NEG Urine Nitrite NEG NEG Urine Bilirubin NEG NEG Urine Urobilinogen NEG NEG Urine Leukocyte Esterase TRACE NEG Urine WBC (Auto) 10-30 0-5 /hpf Urine RBC (Auto) 5-10 0-4 /hpf Urine Hyaline Casts (Auto) 1-5 0-5 /lpf Urine Epithelial Cells (Auto) >30 0-5 /lpf Urine Bacteria (Auto) NEG NEG Test 12/11/16 01:40 12/11/16 04:44 Range/Units Stool Occult Blood NEGATIVE NEGATIVE Microbiology Results 12/10/16 Blood Culture, Received Pending 12/10/16 Blood Culture, Received Pending Assessment & Plan 12/11/16- adm with diverticulitis w/ abscess- cont clear liquids only and IV meds- atbx and heparin
[2016-12-11 07:27] LABS: MEAN CORPUSCULAR HEMOGLOBIN 31.2 pg (25-34); MEAN CORPUSCULAR HGB CONC 33.9 g/dl (32-36); MEAN PLATELET VOLUME 9.5 fL (7.4-10.4); PLATELET COUNT 279 K/uL (130-400); RED BLOOD COUNT 4.13 M/uL (4.2-5.4); WHITE BLOOD COUNT 12.28 K/uL (4.8-10.8)
[2016-12-11 07:42] LABS: PARTIAL THROMBOPLASTIN RATIO 1.6
[2016-12-11] MEDS: SODIUM CHLOR 0.45% + 20MEQ KCL 1,000 ML IV SCH ×2 (08:00→15:56)
[2016-12-11 08:01] LABS: CALCIUM 8.4 mg/dl (8.5-10.1); CREATININE 0.73 mg/dl (0.60-1.20); MAGNESIUM 2.6 mg/dl (1.8-2.4); POTASSIUM 3.8 mmol/L (3.5-5.1)
[2016-12-11] MEDS ORDERED: HEPARIN IV BOLUS 2,000 UNIT in SYRINGE 0 ML IV ONE (08:45)
[2016-12-11] MEDS ORDERED: PNEUMOCOCCAL POLYSACCHARIDES 25 MCG/0.5 ML VIAL/SYR IM. ONE (09:00)
[2016-12-11] MEDS ORDERED: PNEUMOCOCCAL ADMINISTRATION CHARGE ONE (09:00)
--- NOTE | 2016-12-11 12:22 | Hospitalist Progress Note ---
Hospitalist Progress Note Date of Service December 11, 2016. Subjective Pt evaluation today including: conversation w/ patient, conversation w/ family , physical exam, chart review, lab review, review of studies, review of inpatient medication list Patient seen and evaluated. No acute events overnight. Reporting pain is improved and required no pain medications overnight. Only needed Tylenol for headache related to no coffee per patient She is feeling improved and plan for repeat CT of the abdomen. Tolerating a clear liquid diet and reporting an improved appetite. States she had 6 BMs yesterday that were formed. Leukocytosis is improving. Constitutional: No chills, No fever ENT: No sore throat, No trouble swallowing Respiratory: No cough, No shortness of breath Cardiovascular: No chest pain, No palpitations Abdomen: No constipation, No diarrhea, No nausea, No pain, No vomiting Musculoskeletal: No calf pain, No swelling Female : No dysuria Neurologic: No vertigo Skin: No rash Medications Current Inpatient Medications Medications (Trade) Dose Ordered Sig/Marilou Route Start Time Stop Time Status Last Admin Dose Admin Ioversol 125 ml 125 ml UD PRN IV 12/10/16 06:00 12/14/16 05:59 Metronidazole/Prmx (Flagyl / Nss/ Premixed Nss) 100 ml @ 100 mls/hr Q8@0200,1000,1800 IV 12/10/16 10:30 12/20/16 10:29 12/11/16 10:07 100 MLS/HR Acetaminophen (Tylenol Tab) 650 mg Q4H PRN PO 12/10/16 08:00 01/09/17 07:59 12/11/16 01:46 650 MG Al Hydrox/Mg Hydrox/Simethicone (Maalox Max Susp) 15 ml Q4H PRN PO 12/10/16 08:00 01/09/17 07:59 Magnesium Hydroxide (Milk Of Magnesia Susp) 30 ml Q12H PRN PO 12/10/16 08:00 01/09/17 07:59 Ondansetron HCl (Zofran Inj) 4 mg Q6H PRN IV 12/10/16 08:00 01/09/17 07:59 Polyethylene 17 gm 17 gm DAILY PRN PO 12/10/16 08:00 01/09/17 07:59 Piperacillin Sod/ Tazobactam Sod/ Dextrose (Zosyn Iv/D5 100ml) 115 ml @ 28.75 mls/ hr Q8H IV 12/10/16 14:00 12/20/16 13:59 12/11/16 04:58 28.75 MLS/HR Hydromorphone HCl (Dilaudid Inj) 0.5 mg Q4H PRN IV 12/10/16 08:15 12/24/16 08:14 Hydromorphone HCl (Dilaudid Inj) 1 mg Q4H PRN IV 12/10/16 08:15 12/24/16 08:14 Hydromorphone HCl 2 mg 2 mg Q4H PRN IV 12/10/16 08:15 12/24/16 08:14 Potassium Chloride/Sodium Chloride 1,000 ml @ 100 mls/hr Q10H IV 12/10/16 10:30 01/09/17 10:29 12/11/16 08:00 100 MLS/HR Heparin Sodium/ Dextrose (Heparin 25,000 Unit/500ml D5W) 500 ml @ 24 mls/hr [id number] PRN IV 12/10/16 10:30 01/09/17 10:29 12/11/16 08:32 24 MLS/HR Objective Vital Signs Date Time Temp Pulse Resp B/P Pulse Ox O2 Delivery O2 Flow Rate FiO2 12/11/16 11:12 36.9 68 18 129/78 93 Room Air 12/11/16 08:10 Room Air 12/11/16 07:22 37.0 83 16 108/70 94 Room Air 12/11/16 04:00 36.8 78 20 120/76 96 Room Air 12/11/16 04:00 94 Room Air 12/11/16 00:00 94 Room Air 12/10/16 23:00 36.9 71 16 115/70 95 Room Air 12/10/16 20:02 37.0 99 20 120/75 97 Room Air 12/10/16 20:00 94 Room Air 12/10/16 16:29 Room Air 12/10/16 14:59 37.1 74 18 111/70 94 Room Air Physical Exam General Appearance: WD/WN, no apparent distress Eyes: sclerae normal ENT: hearing grossly normal Neck: supple, no JVD, trachea midline Respiratory/Chest: lungs clear, normal breath sounds, no respiratory distress, no accessory muscle use Cardiovascular: regular rate, rhythm, no gallop, no murmur Abdomen: normal bowel sounds, non tender, soft Extremities: no pedal edema, no calf tenderness Neurologic/Psychiatric: alert, oriented x 3 Skin: normal color, warm/dry Laboratory Results Last 24 Hours Test 12/10/16 12:31 12/10/16 15:58 12/10/16 19:35 12/11/16 01:40 Thyroid Stimulating Hormone (TSH) 0.626 uIu/ml Activated Partial Thromboplast Time 47.5 SECONDS Partial Thromboplastin Ratio 1.8 Urine Color DK YELLOW Urine Appearance CLEAR Urine pH 5.0 Urine Specific [place] > 1.045 Urine Protein 1+ Urine Glucose (UA) NEG Urine Ketones 1+ Urine Occult Blood NEG Urine Nitrite NEG Urine Bilirubin NEG Urine Urobilinogen NEG Urine Leukocyte Esterase TRACE Urine WBC (Auto) 10-30 /hpf Urine RBC (Auto) 5-10 /hpf Urine Hyaline Casts (Auto) 1-5 /lpf Urine Epithelial Cells (Auto) >30 /lpf Urine Bacteria (Auto) NEG Stool Occult Blood NEGATIVE Test 12/11/16 06:10 White Blood Count 12.28 K/uL Red Blood Count 4.13 M/uL Hemoglobin 12.9 g/dL Hematocrit 38.0 % Mean Corpuscular Volume 92.0 fL Mean Corpuscular Hemoglobin 31.2 pg Mean Corpuscular Hemoglobin Concent 33.9 g/dl RDW Standard Deviation 46.3 fL RDW Coefficient of Variation 13.7 % Platelet Count 279 K/uL Mean Platelet Volume 9.5 fL Activated Partial Thromboplast Time 41.9 SECONDS Partial Thromboplastin Ratio 1.6 Sodium Level 142 mmol/L Potassium Level 3.8 mmol/L Chloride Level 107 mmol/L Carbon Dioxide Level 29 mmol/L Anion Gap 6.0 mmol/L Blood Urea Nitrogen 11 mg/dl Creatinine 0.73 mg/dl Est Creatinine Clear Calc Drug Dose 69.1 ml/min Estimated GFR () 100.2 Estimated GFR (Non- 86.4 BUN/Creatinine Ratio 15.0 Random Glucose 104 mg/dl Calcium Level 8.4 mg/dl Magnesium Level 2.6 mg/dl Assessment and Plan Ms. Guzmán is a 66 y/o Post-Menopausal female with an unremarkable PMHx who presents to the ED complaining of abdominal pain x [address] revealed acute diverticulitis with abscess and pulmonary emboli with RLL infarct. CT with evidence of endometrum thickening. Acute Diverticulitis with Abscess: IMPROVING - Continue IVF today with 1/2 NSS + 20 mEq KCL at 100 mL/hr - if continued good oral intake can D/C - Metronidazole 500 mg IV Q8H and Zosyn 3.375 IV Q8H - Dilaudid 0.5-2 mg IV Q4H PRN Pain - General Surg following - recommendations reviewed -- Repeat CT 3-4 days - if enlarging transfer for IR Pulmonary Emboli with RLL Infarct: Inflammation vs Endometrial CA? 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
[2016-12-12] VITALS (7 sets, daily range): BP systolic 108–142; BP diastolic 65–86; PULSE 66–72; TEMP 36.8–36.9; O2SAT 93–97
[2016-12-12] MEDS: HEPARIN 25,000 UNIT/500ML D5W 500 ML IV PRN ×2 (01:08→23:00)
[2016-12-12] MEDS: METRONIDAZOLE / NSS 500 MG in PREMIXED NSS 100 ML IV SCH ×3 (01:51→17:48)
[2016-12-12] MEDS: SODIUM CHLOR 0.45% + 20MEQ KCL 1,000 ML IV SCH (01:52)
[2016-12-12] MEDS: PIPERACILL/TAZOBAC IV 3.375 GM in DEXTROSE 5% 100ML 100 ML IV SCH ×3 (05:44→21:49)
[2016-12-12 07:11] LABS: HEMATOCRIT 42.3 % (37-47); MEAN CELL VOLUME 92.4 fL (80-100); MEAN CORPUSCULAR HEMOGLOBIN 30.3 pg (25-34); MEAN CORPUSCULAR HGB CONC 32.9 g/dl (32-36); MEAN PLATELET VOLUME 9.9 fL (7.4-10.4); PLATELET COUNT 300 K/uL (130-400); RED BLOOD COUNT 4.58 M/uL (4.2-5.4); WHITE BLOOD COUNT 10.28 K/uL (4.8-10.8)
--- NOTE | 2016-12-12 07:21 | Surgery Progress Note ---
Surgery Progress Note Date of Service December 12, 2016. Subjective awake, alert, min abd pain- loose bms on clear liquids Objective Vital Signs: Date Time Temp Pulse Resp B/P Pulse Ox O2 Delivery O2 Flow Rate FiO2 12/12/16 04:15 36.9 66 20 120/79 96 Room Air 12/12/16 04:00 93 Room Air 12/12/16 00:00 36.9 70 18 108/65 93 Room Air 12/12/16 00:00 93 Room Air 12/11/16 20:00 91 Room Air 12/11/16 19:25 36.8 80 16 119/75 91 Room Air 12/11/16 17:49 37.1 12/11/16 16:00 95 Room Air 12/11/16 15:45 37.5 78 19 166/74 95 Room Air 12/11/16 12:00 93 Room Air 12/11/16 11:12 36.9 68 18 129/78 93 Room Air 12/11/16 08:10 Room Air 12/11/16 07:22 37.0 83 16 108/70 94 Room Air General Appearance: no apparent distress Respiratory/Chest: no respiratory distress Abdomen: soft Laboratory Results: Results Past 24 Hours Test 12/11/16 14:40 12/12/16 06:56 12/12/16 07:15 Range/Units Activated Partial Thromboplast Time 51.0 21.0-31.0 SECONDS Partial Thromboplastin Ratio 2.0 White Blood Count 10.28 4.8-10.8 K/uL Red Blood Count 4.58 4.2-5.4 M/uL Hemoglobin 13.9 12.0-16.0 g/dL Hematocrit 42.3 37-47 % Mean Corpuscular Volume 92.4 80-100 fL Mean Corpuscular Hemoglobin 30.3 25-34 pg Mean Corpuscular Hemoglobin Concent 32.9 32-36 g/dl RDW Standard Deviation 46.7 36.4-46.3 fL RDW Coefficient of Variation 13.8 11.5-14.5 % Platelet Count 300 130-400 K/uL Mean Platelet Volume 9.9 7.4-10.4 fL Assessment & Plan 12/12/16- will check c diff, cont clear liquids today, and cont IV atbx, at least 2-3 more days IV atbx w/ abscess to med surg when ok with med team po anticoagulants as per med team 12/11/16- adm with diverticulitis w/ abscess- cont clear liquids only and IV meds- atbx and heparin 12/11/16- adm with diverticulitis w/ abscess- cont clear liquids only and IV meds- atbx and heparin
[2016-12-12 07:52] LABS: BUN/CREATININE RATIO 4.9 (10-20); CALCIUM 8.9 mg/dl (8.5-10.1); CREATININE 0.87 mg/dl (0.60-1.20); MAGNESIUM 2.5 mg/dl (1.8-2.4); POTASSIUM 4.1 mmol/L (3.5-5.1)
[2016-12-12 09:09] LABS: PARTIAL THROMBOPLASTIN RATIO 1.9
[2016-12-12] MEDS ORDERED: NURSING VERBAL MED ORDER ONE (09:45)
--- NOTE | 2016-12-12 13:11 | Medical Student: [facility] ---
Med Student Progress Note Date of Service December 12, 2016. Subjective Pt evaluation today including: conversation w/ patient Pain: 0 PO Intake: clear liquids Voiding: no voiding problems Ms Hira Guzmán is a pleasant 66 yo female with acute diverticulitis complicated by a sigmoid colon abscess. A small RLL PE was also found incidentally on an abdominal CT. She was started on zosyn and metronidazol q8 and her symptoms are resolving nicely today. She has no abdominal pain, nausea, vomiting or diarrhea. She is an otherwise heathy female. She uses a standing desk with treadmill at work and runs 3-5 miles several times per week. She notes no history of previous blood clot in herself or family members. Her mother one month ago at the age of 99 and her father lived into his 90s as well. Her biggest concern regards the decision to start a NOAC, which she has agreed to begin for three months following a long discussion. She denies headache, N/V, diarrhea, constipation, chest pain or shortness of breath. She has no trouble urinating and has not had a good bowel movement secondary to liquid diet. Review of Systems Constitutional: No chills, No fatigue, No fever, No sweats, No weakness, No weight loss Eyes: No problem reported ENT: No problem reported Respiratory: No problem reported Cardiac: No problem reported Abdomen: No problem reported Musculoskeletal: No problem reported Female : No problem reported Neurologic: No problem reported Psychiatric: No problem reported Heme: No problem reported Objective Vital Signs Date Time Temp Pulse Resp B/P Pulse Ox O2 Delivery O2 Flow Rate FiO2 12/12/16 11:32 36.9 67 18 119/75 96 Room Air 12/12/16 07:53 36.8 71 20 120/75 97 Room Air 12/12/16 07:25 Room Air 12/12/16 04:15 36.9 66 20 120/79 96 Room Air 12/12/16 04:00 93 Room Air 12/12/16 00:00 36.9 70 18 108/65 93 Room Air 12/12/16 00:00 93 Room Air 12/11/16 20:00 91 Room Air 12/11/16 19:25 36.8 80 16 119/75 91 Room Air 12/11/16 17:49 37.1 12/11/16 16:00 95 Room Air 12/11/16 15:45 37.5 78 19 166/74 95 Room Air Physical Exam Comments: Vitals: See above. General: WD/WN, no acute distress. Resting comfortably. Good energy. HEENT: NCAT, EOMI, PERRLA. No anterior or posterior cervical lymphadenopathy. Moist mucus membranes. CV: S1, S2. RRR. No MRG. Periphral pulses present and equal bilaterally. Pulm: Lungs clear to auscultation in upper and lower lobes bilaterally. Good air movement. Abdomen: Soft, non-tender, non-distended. No pain to palpation. Active bowel sounds. Neuro/Psych: Alert and oriented x3. Good energy. Anxious about cause of PE, starting NOAC. Laboratory Results Last 24 Hours Test 12/11/16 14:40 12/12/16 06:56 12/12/16 07:28 Activated Partial Thromboplast Time 51.0 SECONDS 49.5 SECONDS Partial Thromboplastin Ratio 2.0 1.9 White Blood Count 10.28 K/uL Red Blood Count 4.58 M/uL Hemoglobin 13.9 g/dL Hematocrit 42.3 % Mean Corpuscular Volume 92.4 fL Mean Corpuscular Hemoglobin 30.3 pg Mean Corpuscular Hemoglobin Concent 32.9 g/dl RDW Standard Deviation 46.7 fL RDW Coefficient of Variation 13.8 % Platelet Count 300 K/uL Mean Platelet Volume 9.9 fL Sodium Level 143 mmol/L Potassium Level 4.1 mmol/L Chloride Level 109 mmol/L Carbon Dioxide Level 27 mmol/L Anion Gap 7.0 mmol/L Blood Urea Nitrogen 4 mg/dl Creatinine 0.87 mg/dl Est Creatinine Clear Calc Drug Dose 58.0 ml/min Estimated GFR () 81.0 Estimated GFR (Non- 69.9 BUN/Creatinine Ratio 4.9 Random Glucose 109 mg/dl Calcium Level 8.9 mg/dl Magnesium Level 2.5 mg/dl Assessment and Plan Assessment and Plan: Ms Sheila Guzmán is an otherwise healthy and active 66 yo female with acute diverticulitis complicated by a 2.5x4cm pericolonic sigmoid abscess on hospital day 3. An asymptomatic small RLL PE was found incidentally. She is recovering well today. Individual assessment and plan are as follows: 1. Sigmoid Diverticulitis with abscess: Acute, resolving. Showing clinical signs of improvement. On 500mg metronidazole and 3.375mg pip/tazo q8. Continue through tomorrow, with possible switch to oral abx tomorrow. Will repeat CT tomorrow. Continue with clear liquid diet today, progress tomorrow if abscess and diverticulitis are resolving. Continue to trend CBC. This is her first episode of diverticulitis. She has never had a colonoscopy. Will schedule with PCP, Dr. Tapia, as an outpatient. Discussed need for high fiber diet, no other restrictions. 2. Pulmonary embolus: Acute, small RLL. Asymptomatic. Patient is on heparin drip. Agreeable to 3 months of Xarelto. Will start tomorrow pending CT resolution of abscess. 3. Thickened endometrial lining: Noted on CT and ultrasound. Outpatient assessment specialist followup to be scheduled. 4. DVT Proph: Currently on heparin drip. Will transition to Xarelto tomorrow following CT resolution of abscess. 5. Disposition: Continued stay due to IV hydration and abx. Will repeat CT tomorrow, progress diet and switch to oral abx if continues to progress. Possible discharge tomorrow, likely . Continued [facility] stay due to: multiple IV medications needed Discharge planning: home
--- NOTE | 2016-12-12 15:13 | Progress Note ---
Subjective Date of Service: December 12, 2016. Subjective Pt evaluation today including: conversation w/ patient, physical exam, lab review, conversation w/ immigration consultant, review of inpatient medication list Pain: no abdominal pain today PO Intake: tolerating clear liquids Voiding: no voiding problems feeling well, no abdominal pain, tolerating clears, ambulating in hallway discussed repeat CT tomorrow, she agrees with plan long talk regarding oral anticoagulation, discussed that we would recommend Xarelto she now agrees to take oral AC once ready for discharge Problem List Medical Problems: (1) Colonic diverticular abscess Status: Acute (2) Pulmonary embolism Status: Acute (3) Pulmonary infarct Status: Acute Review of Systems All Other Systems: Reviewed and Negative Medications Current Inpatient Medications Medications (Trade) Dose Ordered Sig/Marilou Route Start Time Stop Time Status Last Admin Dose Admin Ioversol 125 ml 125 ml UD PRN IV 12/10/16 06:00 12/14/16 05:59 Metronidazole/Prmx (Flagyl / Nss/ Premixed Nss) 100 ml @ 100 mls/hr Q8@0200,1000,1800 IV 12/10/16 10:30 12/20/16 10:29 12/12/16 10:05 100 MLS/HR Acetaminophen (Tylenol Tab) 650 mg Q4H PRN PO 12/10/16 08:00 01/09/17 07:59 12/11/16 01:46 650 MG Al Hydrox/Mg Hydrox/Simethicone (Maalox Max Susp) 15 ml Q4H PRN PO 12/10/16 08:00 01/09/17 07:59 Magnesium Hydroxide (Milk Of Magnesia Susp) 30 ml Q12H PRN PO 12/10/16 08:00 01/09/17 07:59 Ondansetron HCl (Zofran Inj) 4 mg Q6H PRN IV 12/10/16 08:00 01/09/17 07:59 Polyethylene 17 gm 17 gm DAILY PRN PO 12/10/16 08:00 01/09/17 07:59 Piperacillin Sod/ Tazobactam Sod/ Dextrose (Zosyn Iv/D5 100ml) 115 ml @ 28.75 mls/ hr Q8H IV 12/10/16 14:00 12/20/16 13:59 12/12/16 13:59 28.75 MLS/HR Hydromorphone HCl (Dilaudid Inj) 0.5 mg Q4H PRN IV 12/10/16 08:15 12/24/16 08:14 Hydromorphone HCl (Dilaudid Inj) 1 mg Q4H PRN IV 12/10/16 08:15 12/24/16 08:14 Hydromorphone HCl 2 mg 2 mg Q4H PRN IV 12/10/16 08:15 12/24/16 08:14 Heparin Sodium/ Dextrose (Heparin 25,000 Unit/500ml D5W) 500 ml @ 24 mls/hr [id number] PRN IV 12/10/16 10:30 01/09/17 10:29 12/12/16 01:08 24 MLS/HR Objective Vital Signs Date Time Temp Pulse Resp B/P Pulse Ox O2 Delivery O2 Flow Rate FiO2 12/12/16 11:32 36.9 67 18 119/75 96 Room Air 12/12/16 07:53 36.8 71 20 120/75 97 Room Air 12/12/16 07:25 Room Air 12/12/16 04:15 36.9 66 20 120/79 96 Room Air 12/12/16 04:00 93 Room Air 12/12/16 00:00 36.9 70 18 108/65 93 Room Air 12/12/16 00:00 93 Room Air 12/11/16 20:00 91 Room Air 12/11/16 19:25 36.8 80 16 119/75 91 Room Air 12/11/16 17:49 37.1 12/11/16 16:00 95 Room Air 12/11/16 15:45 37.5 78 19 166/74 95 Room Air Physical Exam General Appearance: WD/WN, no apparent distress Eyes: normal inspection, EOMI, sclerae normal ENT: normal ENT inspection, hearing grossly normal, pharynx normal Neck: supple, no adenopathy, no JVD, trachea midline Respiratory/Chest: chest non-tender, lungs clear, normal breath sounds, no respiratory distress, no accessory muscle use Cardiovascular: regular rate, rhythm, no edema, no gallop, no JVD, no murmur Abdomen: normal bowel sounds, non tender, soft, no organomegaly Extremities: normal range of motion, non-tender, normal inspection, no pedal edema, no calf tenderness 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, no motor/sensory deficits, alert, normal mood/affect, oriented x 3 Skin: normal color, warm/dry, no rash Lymphatic: no adenopathy Laboratory Results Last 24 Hours Test 12/12/16 06:56 12/12/16 07:28 White Blood Count 10.28 K/uL Red Blood Count 4.58 M/uL Hemoglobin 13.9 g/dL Hematocrit 42.3 % Mean Corpuscular Volume 92.4 fL Mean Corpuscular Hemoglobin 30.3 pg Mean Corpuscular Hemoglobin Concent 32.9 g/dl RDW Standard Deviation 46.7 fL RDW Coefficient of Variation 13.8 % Platelet Count 300 K/uL Mean Platelet Volume 9.9 fL Sodium Level 143 mmol/L Potassium Level 4.1 mmol/L Chloride Level 109 mmol/L Carbon Dioxide Level 27 mmol/L Anion Gap 7.0 mmol/L Blood Urea Nitrogen 4 mg/dl Creatinine 0.87 mg/dl Est Creatinine Clear Calc Drug Dose 58.0 ml/min Estimated GFR () 81.0 Estimated GFR (Non- 69.9 BUN/Creatinine Ratio 4.9 Random Glucose 109 mg/dl Calcium Level 8.9 mg/dl Magnesium Level 2.5 mg/dl Activated Partial Thromboplast Time 49.5 SECONDS Partial Thromboplastin Ratio 1.9 Assessment and Plan Ms. Guzmán is a 66 y/o Post-Menopausal female with an unremarkable PMHx who presents to the ED complaining of abdominal pain x [address] revealed acute diverticulitis with abscess and pulmonary emboli with RLL infarct. CT with evidence of endometrum thickening. 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 - Consult Heme/Onc - recommendations reviewed - will treat as a provoked VTE for now - plan for 3 months of oral AC, will switch to Xarelto tomorrow once we can be sure no surgical intervention/IR needed Thickened Endometrium: Denies vaginal bleeding - Pelvic U/S - endometrium 9 mm - outpatient SAW REPAIRER needed for further evaluation DVT Prophylaxis: Heparin gtt Code Status: FULL RESUSCITATION Disposition: From home and independent - Will need co-pay evaluated in NOAC for anticoaculation warranted - d/c in 2-3 days on oral AC and oral antibiotics Continued [facility] stay due to: multiple IV medications needed Discharge planning: home
[2016-12-12] MEDS: ACETAMINOPHEN 325 MG TAB PO PRN (22:24)
[2016-12-13] MEDS: HEPARIN 25,000 UNIT/500ML D5W 500 ML IV PRN ×5 (00:04→23:15)
[2016-12-13] MEDS: METRONIDAZOLE / NSS 500 MG in PREMIXED NSS 100 ML IV SCH ×2 (01:39→10:16)
[2016-12-13] MEDS: PIPERACILL/TAZOBAC IV 3.375 GM in DEXTROSE 5% 100ML 100 ML IV SCH (05:51)
--- NOTE | 2016-12-13 06:22 | Clinical Documentation Query ---
CLINICAL DOCUMENTATION QUERY 66 year old female who presents to the Emergency Room with complaints of waxing and waning abdominal pain. 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 Daily progress notes state that PE was "provoked." A professional cardiology technician cannot assume what provoked the PE. Query#1/2 In your clinical opinion is this patient being managed for: ( x ) PE due to underlying DVTs ( ) PE and DVTs due to possible underlying cancer of unknown site. ( ) PE and DVTs due to possible underlying endometrial cancer ( ) Other explanation of clinical findings (Please Explain) ( ) Unable to determine (Please Define) ( ) Need to Discuss ( ) Not Agree The medical record reflects the following clinical findings, treatment, and risk factors. Clinical Indicators: Chest CT +PE, Venous doppler +likely chronic DVT's to bilateral femoral veins. Treatment: heme/onc consult, pelvic CT, Venous doppler, Heparin gtt, outpatient DEVELOPMENT ADVISOR appointment, Risk Factors: Age, sex, endometrial thickening on CT, family hx of uterine CA. Query #2/2 In your clinical opinion is this patient being managed for: ( x ) Bilateral chronic thrombosis of femoral vein causing PE. ( ) Other explanation of clinical findings (Please Explain) ( ) Unable to determine (Please Define) ( ) Need to Discuss ( ) Not Agree The medical record reflects the following clinical findings, treatment, and risk factors. Clinical Indicators: Venous doppler showed stranding within the bilateral superficial femoral veins which suggests chronic thrombus. Treatment: heme/onc consult, Venous doppler, Heparin gtt Risk Factors: Age, ?of underlying cancer Please clarify and document your clinical opinion in the progress notes and discharge summary. Terms such as "probable", "suspected", "likely", "questionable", "possible", or "still to be ruled out" are acceptable. IF IN AGREEMENT, YOU MUST DOCUMENT ABOVE DIAGNOSTIC STATEMENT IN DAILY PROGRESS NOTES AND DISCHARGE SUMMARY. This document is not part of the patient's record. Thank You, Richard Green RN [phone]
--- NOTE | 2016-12-13 06:38 | Surgery Progress Note ---
Surgery Progress Note Date of Service December 13, 2016. Subjective + bowel movement, + feeling well, No nausea, No vomiting c diff negative Objective Vital Signs: Date Time Temp Pulse Resp B/P Pulse Ox O2 Delivery O2 Flow Rate FiO2 12/13/16 00:05 Room Air 12/12/16 23:17 36.8 70 16 114/74 95 Room Air 12/12/16 16:01 36.8 72 17 142/86 96 Room Air 12/12/16 15:55 Room Air 12/12/16 11:32 36.9 67 18 119/75 96 Room Air 12/12/16 07:53 36.8 71 20 120/75 97 Room Air 12/12/16 07:25 Room Air General Appearance: no apparent distress Respiratory/Chest: no respiratory distress Abdomen: non tender, soft Laboratory Results: Results Past 24 Hours Test 12/12/16 06:56 12/12/16 07:28 12/13/16 04:44 Range/Units White Blood Count 10.28 4.8-10.8 K/uL Red Blood Count 4.58 4.2-5.4 M/uL Hemoglobin 13.9 12.0-16.0 g/dL Hematocrit 42.3 37-47 % Mean Corpuscular Volume 92.4 80-100 fL Mean Corpuscular Hemoglobin 30.3 25-34 pg Mean Corpuscular Hemoglobin Concent 32.9 32-36 g/dl RDW Standard Deviation 46.7 36.4-46.3 fL RDW Coefficient of Variation 13.8 11.5-14.5 % Platelet Count 300 130-400 K/uL Mean Platelet Volume 9.9 7.4-10.4 fL Sodium Level 143 136-145 mmol/L Potassium Level 4.1 3.5-5.1 mmol/L Chloride Level 109 98-107 mmol/L Carbon Dioxide Level 27 21-32 mmol/L Anion Gap 7.0 3-11 mmol/L Blood Urea Nitrogen 4 7-18 mg/dl Creatinine 0.87 0.60-1.20 mg/dl Est Creatinine Clear Calc Drug Dose 58.0 ml/min Estimated GFR () 81.0 Estimated GFR (Non- 69.9 BUN/Creatinine Ratio 4.9 10-20 Random Glucose 109 70-99 mg/dl Calcium Level 8.9 8.5-10.1 mg/dl Magnesium Level 2.5 1.8-2.4 mg/dl Activated Partial Thromboplast Time 49.5 21.0-31.0 SECONDS Partial Thromboplastin Ratio 1.9 Microbiology Results 12/12/16 C.difficile Toxin B Gene (PCR) - Final, Complete No C. difficile toxin B gene detected Assessment & Plan 12/13/16- will re CT today to assess for chgs in abscess- ask ID to see re- home atbx- may need IV with picc line. overall very stable on clear liquids 12/12/16- will check c diff, cont clear liquids today, and cont IV atbx, at least 2-3 more days IV atbx w/ abscess to med surg when ok with med team po anticoagulants as per med team 12/11/16- adm with diverticulitis w/ abscess- cont clear liquids only and IV meds- atbx and heparin 12/12/16- will check c diff, cont clear liquids today, and cont IV atbx, at least 2-3 more days IV atbx w/ abscess to med surg when ok with med team po anticoagulants as per med team 12/11/16- adm with diverticulitis w/ abscess- cont clear liquids only and IV meds- atbx and heparin
[2016-12-13] MEDS ORDERED: OPTIRAY 320 IV PRN (06:45)
[2016-12-13 07:05] VITALS: BP 156/86; PULSE 82; TEMP 36.8; O2SAT 96
[2016-12-13 08:13] LABS: PARTIAL THROMBOPLASTIN RATIO 2.3
--- NOTE | 2016-12-13 10:24 | DIAGNOSTIC IMAGING REPORT ---
CT OF THE ABDOMEN AND PELVIS WITH CONTRAST CLINICAL HISTORY: Assess diverticular abscess. Pulmonary embolism. COMPARISON STUDY: CT of the abdomen and pelvis December 10, 2016. TECHNIQUE: Following IV administration of 90 mL of Optiray-320, axial images of the abdomen and pelvis were obtained from the lung bases to the proximal femurs. Images were reviewed in the axial, sagittal, and coronal planes. IV contrast was administered without complication. Oral contrast was administered. CT DOSE: 282.35 mGy.cm FINDINGS: Visualized portions of the lower chest again demonstrate a segmental pulmonary embolus within the right lower lobe with a small right lower lobe pulmonary infarct. The liver, spleen, adrenal glands and pancreas are normal. There are numerous subcentimeter renal lesions which are too small to characterize. However, these likely reflect cysts. There is no evidence for a bowel obstruction. Note is again made of wall thickening of the mid sigmoid colon with adjacent infiltration. There is colonic diverticulosis. There is an oral contrast and gas containing tract which extends to a central pelvic fluid and gas containing collection that measures approximately 6.1 x 2.5 cm. Allowing for measurement variability, this is likely similar to CT of December 10, 2016. This abscess is located anterior to the rectosigmoid junction. Mild endometrial thickening is again noted. No additional fluid collections are present. Pelvic infiltration is similar to prior exam. Skeletal structures are unremarkable. IMPRESSION: 1. Acute diverticulitis of the mid sigmoid colon with associated oral contrast and gas containing tract extending to a diverticular abscess within the central pelvis. Allowing for measurement variability, this abscess is similar to exam of December 10, 2016. Adjacent inflammation is similar to prior exam. 2. No change in a segmental right lower lobe pulmonary embolus with associated small right lower lobe pulmonary infarct. Electronically signed by: Vasile Sarabia M.D. 12/13/2016 10:23 AM Dictated Date/Time: 12/13/2016 10:13 AM
--- NOTE | 2016-12-13 11:30 | Medical Consult ---
Consultation Date of Consultation: December 13, 2016. Attending Physician: Ayaz Degroot D.O. Reason for Consultation: Abx at home History of Present Illness Patient is a 66-year-old female who presented to the emergency department complaints of abdominal pain 3 days prior to admission. She described the pain initially as very sharp pain in her mid/lower abdomen. The patient also was experiencing sweating, nausea and vomiting. She had not moved her bowels for multiple days prior to admission. Upon admission, the patient had a CT of the abdomen/pelvis which showed acute sigmoid diverticulitis with an associated 4 x 2.2 cm pericolonic abscess adjacent to the mid sigmoid colon. She was also noted to have a right lower lobe subsegmental pulmonary embolus with right lower lobe pulmonary infarct. White blood cell count on admission was 17.67. Her creatinine was 0.90. She did have blood cultures which showed no growth to date. Her C diff toxin was negative. She did have a repeat CT scan the abdomen /pelvis today which showed continued diverticulitis of the sigmoid colon along with abscess of similar size to previous study. She is currently on IV Zosyn and tolerating this medication well. She is overall feeling much improved. She states that her abdominal pain has subsided, and she has not had any continued sweats, nausea, or vomiting. Surgery was consult fitted and noted that no surgical intervention is currently necessary. I did also discuss this patient with Dr. Degroot and Stella in Case Management. Past Medical/Surgical History Medical Problems: (1) Colonic diverticular abscess Status: Acute (2) Pulmonary embolism Status: Acute (3) Pulmonary infarct Status: Acute Medical Problems: (1) Skin problem (2) Tonsillectomy planned Surgical Problems: (1) H/O adenoidectomy Family History FH: cancer MOTHER (Uterine Tumor) FH: diabetes mellitus FH: gallbladder disease FH: heart disease FH: hypertension Noncontributory Social History Smoking Status: Never Smoker Smokeless Tobacco Use: No Drug Use: none Marital Status: Housing Status: lives with significant other Occupation Status: employed Allergies Uncoded Allergies: ENVIRONMENTAL (Adverse Reaction, Intermediate, various, 12/10/16) Home Medications Reported Home Medications Medications Dose Route/Sig Max Daily Dose Days Date Category No Active Prescriptions or Reported Medications Rx Current Inpatient Medications Current Inpatient Medications Medications (Trade) Dose Ordered Sig/Marilou Route Start Time Stop Time Status Last Admin Dose Admin Ioversol 125 ml 125 ml UD PRN IV 12/10/16 06:00 12/14/16 05:59 Metronidazole/Prmx (Flagyl / Nss/ Premixed Nss) 100 ml @ 100 mls/hr Q8@0200,1000,1800 IV 12/10/16 10:30 12/20/16 10:29 12/13/16 10:16 100 MLS/HR Acetaminophen (Tylenol Tab) 650 mg Q4H PRN PO 12/10/16 08:00 01/09/17 07:59 12/12/16 22:24 650 MG Al Hydrox/Mg Hydrox/Simethicone (Maalox Max Susp) 15 ml Q4H PRN PO 12/10/16 08:00 01/09/17 07:59 Magnesium Hydroxide (Milk Of Magnesia Susp) 30 ml Q12H PRN PO 12/10/16 08:00 01/09/17 07:59 Ondansetron HCl (Zofran Inj) 4 mg Q6H PRN IV 12/10/16 08:00 01/09/17 07:59 Polyethylene 17 gm 17 gm DAILY PRN PO 12/10/16 08:00 01/09/17 07:59 Piperacillin Sod/ Tazobactam Sod/ Dextrose (Zosyn Iv/D5 100ml) 115 ml @ 28.75 mls/ hr Q8H IV 12/10/16 14:00 12/20/16 13:59 12/13/16 05:51 28.75 MLS/HR Hydromorphone HCl (Dilaudid Inj) 0.5 mg Q4H PRN IV 12/10/16 08:15 12/24/16 08:14 Hydromorphone HCl (Dilaudid Inj) 1 mg Q4H PRN IV 12/10/16 08:15 12/24/16 08:14 Hydromorphone HCl 2 mg 2 mg Q4H PRN IV 12/10/16 08:15 12/24/16 08:14 Heparin Sodium/ Dextrose (Heparin 25,000 Unit/500ml D5W) 500 ml @ 24 mls/hr [id number] PRN IV 12/10/16 10:30 01/09/17 10:29 12/13/16 08:30 24 MLS/HR Ioversol (Optiray 320) 100 ml UD PRN IV 12/13/16 06:45 12/17/16 06:44 Review of Systems Constitutional: No fever, No chills, No sweats, No weakness Eyes: No worsening of vision ENT: No hearing loss Respiratory: No cough, No shortness of breath Cardiovascular: No chest pain Abdomen: + diarrhea (currently), + problem reported (cramping), No pain, No nausea, No vomiting Musculoskeletal: No joint pain, No swelling Genitourinary - Female: No dysuria, No urinary frequency, No urinary urgency Integumentary: + rash, + itch, + new/changing skin lesions Physical Exam Date Time Temp Pulse Resp B/P Pulse Ox O2 Delivery O2 Flow Rate FiO2 12/13/16 08:00 Room Air 12/13/16 07:05 36.8 82 20 156/86 96 Room Air 12/13/16 00:05 Room Air 12/12/16 23:17 36.8 70 16 114/74 95 Room Air 12/12/16 16:01 36.8 72 17 142/86 96 Room Air 12/12/16 15:55 Room Air 12/12/16 11:32 36.9 67 18 119/75 96 Room Air General Appearance: WD/WN, no apparent distress Head: normocephalic, atraumatic Eyes: normal inspection, sclerae normal ENT: hearing grossly normal Neck: supple, trachea midline Respiratory/Chest: chest non-tender, lungs clear, normal breath sounds, no respiratory distress, no accessory muscle use Cardiovascular: regular rate, rhythm, no murmur Abdomen/GI: normal bowel sounds, non tender, soft Back: normal inspection Extremities/Musculoskelatal: normal inspection, no pedal edema Neurologic/Psych: alert, normal mood/affect, oriented x 3 Skin: normal color, warm/dry, no rash Laboratory Results CT OF THE ABDOMEN AND PELVIS WITH CONTRAST CLINICAL HISTORY: Assess diverticular abscess. Pulmonary embolism. COMPARISON STUDY: CT of the abdomen and pelvis December 10, 2016. TECHNIQUE: Following IV administration of 90 mL of Optiray-320, axial images of the abdomen and pelvis were obtained from the lung bases to the proximal femurs. Images were reviewed in the axial, sagittal, and coronal planes. IV contrast was administered without complication. Oral contrast was administered. CT DOSE: 282.35 mGy.cm FINDINGS: Visualized portions of the lower chest again demonstrate a segmental pulmonary embolus within the right lower lobe with a small right lower lobe pulmonary infarct. The liver, spleen, adrenal glands and pancreas are normal. There are numerous subcentimeter renal lesions which are too small to characterize. However, these likely reflect cysts. There is no evidence for a bowel obstruction. Note is again made of wall thickening of the mid sigmoid colon with adjacent infiltration. There is colonic diverticulosis. There is an oral contrast and gas containing tract which extends to a central pelvic fluid and gas containing collection that measures approximately 6.1 x 2.5 cm. Allowing for measurement variability, this is likely similar to CT of December 10, 2016. This abscess is located anterior to the rectosigmoid junction. Mild endometrial thickening is again noted. No additional fluid collections are present. Pelvic infiltration is similar to prior exam. Skeletal structures are unremarkable. IMPRESSION: 1. Acute diverticulitis of the mid sigmoid colon with associated oral contrast and gas containing tract extending to a diverticular abscess within the central pelvis. Allowing for measurement variability, this abscess is similar to exam of December 10, 2016. Adjacent inflammation is similar to prior exam. 2. No change in a segmental right lower lobe pulmonary embolus with associated small right lower lobe pulmonary infarct. Item Value Date Time C.difficile Toxin B Gene (PCR) - Final Complete 12/12/16 0855 Stool No C. difficile toxin B gene detected Blood Culture - Preliminary Resulted 12/10/16 0716 Blood NO GROWTH TO DATE. Blood Culture - Preliminary Resulted 12/10/16 0710 Blood NO GROWTH TO DATE. Last 24 Hours Test 12/13/16 07:40 Activated Partial Thromboplast Time 59.0 SECONDS Partial Thromboplastin Ratio 2.3 Assessment & Plan Patient with acute diverticulitis and abdominal/pelvic abscess. It appears that her abscess has not changed in size much since initial CT scan of the abdomen. Therefore, would recommend completing at least 14 days of IV therapy with repeat CT scan prior to discontinuation. Patient will need a PICC line. Will change from IV Zosyn to IV Ertapenem for ease of use upon discharge. We will follow. PROVIDER ADDENDUM: Patient examined and reviewed with Ms. Noe. Agree with above assessment.
[2016-12-13] MEDS ORDERED: PIPERACILL/TAZOBAC CONSULT ACTIVE PRN (13:15)
--- NOTE | 2016-12-13 14:12 | Hospitalist Progress Note ---
Hospitalist Progress Note Date of Service December 13, 2016. Subjective Pt evaluation today including: conversation w/ patient, physical exam, chart review, lab review, review of studies, review of inpatient medication list Patient seen and evaluated. No acute events overnight. Repeat CT does not reveal much change in abscess size however clinically improved. She is having no abdominal pain. Only complaint is of bloating. Plan for at least 14 days IV Abx with repeat CT for resolution. Xarelto and Eliquis dummy scripts show an approx $200 co-pay/month. Patient is adamant against Coumadin due to father with bad experience. Will discuss with patient tomorrow on rounds Constitutional: No chills, No fever Respiratory: No shortness of breath Cardiovascular: No chest pain Abdomen: No GI bleeding, No constipation, No diarrhea, No nausea, No pain, No vomiting Musculoskeletal: No calf pain, No swelling Female : No dysuria Heme: No abnormal bleeding/bruising Medications Current Inpatient Medications Medications (Trade) Dose Ordered Sig/Marilou Route Start Time Stop Time Status Last Admin Dose Admin Ioversol (Optiray 320) 125 ml UD PRN IV 12/10/16 06:00 12/14/16 05:59 Acetaminophen (Tylenol Tab) 650 mg Q4H PRN PO 12/10/16 08:00 01/09/17 07:59 12/12/16 22:24 650 MG Al Hydrox/Mg Hydrox/Simethicone (Maalox Max Susp) 15 ml Q4H PRN PO 12/10/16 08:00 01/09/17 07:59 Magnesium Hydroxide (Milk Of Magnesia Susp) 30 ml Q12H PRN PO 12/10/16 08:00 01/09/17 07:59 Ondansetron HCl (Zofran Inj) 4 mg Q6H PRN IV 12/10/16 08:00 01/09/17 07:59 Polyethylene (Miralax Powder Packet) 17 gm DAILY PRN PO 12/10/16 08:00 01/09/17 07:59 Hydromorphone HCl (Dilaudid Inj) 0.5 mg Q4H PRN IV 12/10/16 08:15 12/24/16 08:14 Hydromorphone HCl (Dilaudid Inj) 1 mg Q4H PRN IV 12/10/16 08:15 12/24/16 08:14 Hydromorphone HCl 2 mg 2 mg Q4H PRN IV 12/10/16 08:15 12/24/16 08:14 Heparin Sodium/ Dextrose (Heparin 25,000 Unit/500ml D5W) 500 ml @ 24 mls/hr [id number] PRN IV 12/10/16 10:30 01/09/17 10:29 12/13/16 08:30 24 MLS/HR Ioversol 100 ml 100 ml UD PRN IV 12/13/16 06:45 12/17/16 06:44 Ertapenem/Sodium Chloride (Invanz Iv/Nss Ad-Van 50ml) 50 ml @ 120 mls/hr Q24H IV 12/13/16 16:00 12/23/16 15:59 Objective Vital Signs Date Time Temp Pulse Resp B/P Pulse Ox O2 Delivery O2 Flow Rate FiO2 12/13/16 08:00 Room Air 12/13/16 07:05 36.8 82 20 156/86 96 Room Air 12/13/16 00:05 Room Air 12/12/16 23:17 36.8 70 16 114/74 95 Room Air 12/12/16 16:01 36.8 72 17 142/86 96 Room Air 12/12/16 15:55 Room Air Physical Exam General Appearance: WD/WN, no apparent distress Eyes: sclerae normal ENT: hearing grossly normal Neck: supple, no JVD, trachea midline Respiratory/Chest: lungs clear, normal breath sounds, no respiratory distress, no accessory muscle use Cardiovascular: regular rate, rhythm, no gallop, no murmur Abdomen: normal bowel sounds, non tender, soft Extremities: no pedal edema, no calf tenderness Neurologic/Psychiatric: alert Skin: normal color, warm/dry Laboratory Results Last 24 Hours Test 12/13/16 07:40 Activated Partial Thromboplast Time 59.0 SECONDS Partial Thromboplastin Ratio 2.3 Assessment and Plan Ms. Guzmán is a 66 y/o Post-Menopausal female with an unremarkable PMHx who presents to the ED complaining of abdominal pain x [address] revealed acute diverticulitis with abscess and pulmonary emboli with RLL infarct. CT with evidence of endometrum thickening. 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 stay due to: multiple IV medications needed Discharge planning: home
[2016-12-13 15:43] VITALS: BP 151/88; PULSE 75; TEMP 36.9; O2SAT 94
[2016-12-13] MEDS: ERTAPENEM IV 1 GM in SODIUM CHLOR 0.9% AD-VAN 50ML 50 ML IV SCH (15:57)
[2016-12-13] MEDS ORDERED: SACCHAROMYCES BOUL (FLORASTOR) 250 MG CAP PO ONE (20:06)
[2016-12-13 23:13] VITALS: BP 133/77; PULSE 70; TEMP 36.7; O2SAT 95
[2016-12-14 01:34] VITALS: BP 148/75
[2016-12-14 06:42] LABS: PARTIAL THROMBOPLASTIN RATIO 2.3
--- NOTE | 2016-12-14 06:48 | Surgery Progress Note ---
Surgery Progress Note Date of Service Dec 14, 2016. Subjective No vomiting some occasional bloated feeling , but overall progressing Objective Vital Signs: Date Time Temp Pulse Resp B/P (MAP) Pulse Ox O2 Delivery O2 Flow Rate FiO2 12/14/16 01:34 148/75 (99) 12/13/16 23:20 Room Air 12/13/16 23:13 36.7 70 16 133/77 (95) 95 Room Air 12/13/16 16:16 Room Air 12/13/16 15:43 36.9 75 16 151/88 (109) 94 Room Air 12/13/16 08:00 Room Air 12/13/16 07:05 36.8 82 20 156/86 (109) 96 Room Air Abdomen: soft Laboratory Results: Results Past 24 Hours Test 12/13/16 07:40 12/14/16 05:57 Range/Units Activated Partial Thromboplast Time 59.0 21.0-31.0 SECONDS Partial Thromboplastin Ratio 2.3 Microbiology Results 12/14/16 C.difficile Toxin B Gene (PCR) - Final, Complete No C. difficile toxin B gene detected Assessment & Plan 12/14/16- adv to full liquids, home on low fiber diet, on Ertapenem picc line per medical team, possibly home tomorrow on IV atbx- I will see her next week. if pt fails current plan may consider tpn, IR drainage. I will be away tomorrow- Gracie Newman and Greg are here as well as assistants- Arpan/ Venkat 12/13/16- will re CT today to assess for chgs in abscess- ask ID to see re- home atbx- may need IV with picc line. overall very stable on clear liquids 12/12/16- will check c diff, cont clear liquids today, and cont IV atbx, at least 2-3 more days IV atbx w/ abscess to med surg when ok with med team po anticoagulants as per med team 12/11/16- adm with diverticulitis w/ abscess- cont clear liquids only and IV meds- atbx and heparin 12/13/16- will re CT today to assess for chgs in abscess- ask ID to see re- home atbx- may need IV with picc line. overall very stable on clear liquids 12/12/16- will check c diff, cont clear liquids today, and cont IV atbx, at least 2-3 more days IV atbx w/ abscess to med surg when ok with med team po anticoagulants as per med team 12/11/16- adm with diverticulitis w/ abscess- cont clear liquids only and IV meds- atbx and heparin
--- NOTE | 2016-12-14 06:51 | Discharge Instructions ---
Discharge Instructions Date of Service Dec 14, 2016. Admission Reason for Admission: Colonic Diverticular Abscess, Pulmonary Embolism Discharge Discharge Diagnosis / Problem: diverticulitis Discharge Goals Goal(s): Decrease discomfort, Improve function, Improve disease control Activity Recommendations Activity Limitations: as noted below Lifting Limitations: gradually increase as tolerated Exercise/Sports Limitations: until after follow-up appointment May Resume Sexual Activity: when tolerated Shower/Bathe: no limitations . Instructions / Follow-Up Instructions / Follow-Up call Dr Huber's office [phone] for appt to be seen next 12/22 Current Hospital Diet Patient's current hospital diet: Full Liquid Diet Discharge Diet Recommended Diet: Low Fiber Diet Pending Studies Studies pending at discharge: no Medical Emergencies . Who to Call and When: Medical Emergencies: If at any time you feel your situation is an emergency, please call 911 immediately. . Non-Emergent Contact Non-Emergency issues call your: Surgeon . "Provider Documentation" section prepared by Vishnu Huber. . VTE Core Measure Inpt VTE Proph given/why not?: Unfractionated heparin SQ, Other Anticoagulation (Heparin gtt), SCD's
[2016-12-14 07:09] VITALS: BP 124/80; PULSE 71; TEMP 36.8; O2SAT 94
[2016-12-14] MEDS: SACCHAROMYCES BOUL (FLORASTOR) 250 MG CAP PO SCH (08:50)
--- NOTE | 2016-12-14 13:05 | Hospitalist Progress Note ---
Hospitalist Progress Note Date of Service Dec 14, 2016. Subjective Pt evaluation today including: conversation w/ patient, physical exam, chart review, lab review, review of studies, review of inpatient medication list Patient seen and evaluated. No acute events overnight. PICC line consented and placed with plans for [facility] infusions. Heparin gtt stopped and started on Xarelto. Tolerating full liquid diet. Denies abdominal pain. Progressing well. Constitutional: No fever, No chills Respiratory: No shortness of breath Cardiovascular: No chest pain Abdomen: No pain, No nausea, No vomiting, No diarrhea, No constipation Musculoskeletal: No swelling, No calf pain Female : No dysuria Heme: No abnormal bleeding/bruising Skin: No rash Medications Current Inpatient Medications Medications (Trade) Dose Ordered Sig/Marilou Route Start Time Stop Time Status Last Admin Dose Admin Acetaminophen (Tylenol Tab) 650 mg Q4H PRN PO 12/10/16 08:00 01/09/17 07:59 12/12/16 22:24 650 MG Al Hydrox/Mg Hydrox/Simethicone (Maalox Max Susp) 15 ml Q4H PRN PO 12/10/16 08:00 01/09/17 07:59 Magnesium Hydroxide (Milk Of Magnesia Susp) 30 ml Q12H PRN PO 12/10/16 08:00 01/09/17 07:59 Ondansetron HCl (Zofran Inj) 4 mg Q6H PRN IV 12/10/16 08:00 01/09/17 07:59 Polyethylene (Miralax Powder Packet) 17 gm DAILY PRN PO 12/10/16 08:00 01/09/17 07:59 Ioversol (Optiray 320) 100 ml UD PRN IV 12/13/16 06:45 12/17/16 06:44 Ertapenem 1 gm/ Sodium Chloride 50 ml @ 120 mls/hr Q24H IV 12/13/16 16:00 12/23/16 15:59 12/13/16 15:57 120 MLS/HR Saccharomyces Boulardii (Florastor Cap) 250 mg DAILY PO 12/14/16 09:00 01/13/17 08:59 12/14/16 08:50 250 MG Heparin Sodium (Porcine) (Heparin 10 Unit/ ml 5 ml Flush) 5 ml PRN PRN FLUSH 12/14/16 12:15 01/13/17 12:14 12/14/16 12:50 5 ML Rivaroxaban (Xarelto Tab) 15 mg BID PO 12/14/16 17:00 01/13/17 16:59 UNV Objective Vital Signs Date Time Temp Pulse Resp B/P (MAP) Pulse Ox O2 Delivery O2 Flow Rate FiO2 12/14/16 08:40 Room Air 12/14/16 07:09 36.8 71 16 124/80 (95) 94 Room Air 12/14/16 01:34 148/75 (99) 12/13/16 23:20 Room Air 12/13/16 23:13 36.7 70 16 133/77 (95) 95 Room Air 12/13/16 16:16 Room Air 12/13/16 15:43 36.9 75 16 151/88 (109) 94 Room Air Physical Exam General Appearance: WD/WN, no apparent distress Eyes: sclerae normal ENT: hearing grossly normal Neck: supple, no JVD, trachea midline Respiratory/Chest: lungs clear, normal breath sounds, no respiratory distress, no accessory muscle use Cardiovascular: regular rate, rhythm, no gallop, no murmur Abdomen: normal bowel sounds, non tender, soft Extremities: no pedal edema, no calf tenderness Neurologic/Psychiatric: alert, oriented x 3 Skin: normal color, warm/dry Laboratory Results Last 24 Hours Test 12/14/16 05:57 12/14/16 08:03 Activated Partial Thromboplast Time 58.6 SECONDS Partial Thromboplastin Ratio 2.3 Bedside Glucose 107 mg/dl Assessment and Plan Ms. Guzmán is a 66 y/o Post-Menopausal female with an unremarkable PMHx who presents to the ED complaining of abdominal pain x [address] revealed acute diverticulitis with abscess and pulmonary emboli with RLL infarct. CT with evidence of endometrum thickening. Acute Diverticulitis with Abscess: IMPROVING - Ertapenem 1 g IV daily - Dilaudid 0.5-2 mg IV Q4H PRN Pain - General Surg following - recommendations reviewed -- No IR intervention at this time and diet advancement - Infectious Disease following - recommendations reviewed - PICC line with Ertapenem for [address] prior to D/C Abx possibly longer if necessary Pulmonary Emboli with RLL Infarct with Chronic Thrombus in Superficial Femorals : Treat as Provoked - Xarelto 15 mg BID - Plan for 3 months oral AC Thickened Endometrium: Denies vaginal bleeding - Pelvic U/S - endometrium 9 mm - outpatient [facility] needed for further evaluation DVT Prophylaxis: Xarelto Code Status: FULL RESUSCITATION Disposition: From home and independent - Anticipate home tomorrow with PICC line and outpatient Abx at [facility] Continued [facility] stay due to: multiple IV medications needed Discharge planning: home
[2016-12-14 15:09] VITALS: BP 126/79; PULSE 85; TEMP 36.7; O2SAT 91
[2016-12-14] MEDS: ERTAPENEM IV 1 GM in SODIUM CHLOR 0.9% AD-VAN 50ML 50 ML IV SCH (16:32)
--- NOTE | 2016-12-14 16:55 | Infectious Disease Progress Nt ---
Progress Note Date of Service Dec 14, 2016. Subjective Pt evaluation today including: conversation w/ patient, physical exam, chart review, lab review, review of studies, conversation w/ [employer] consultant (Tori Green PA-C), review of inpatient medication list Patient is feeling much improved today. She states that she is tolerating the IV ertapenem better than she was tolerating the Flagyl and IV Zosyn. Her blood cultures have continued to show no growth today. Repeat C diff toxin is negative. She has been afebrile. She states that she has not had any sweats, chills, nausea, vomiting or abdominal pain. She continues to have mildly loose stools. She is however eating more solid foods now. She is anticipating discharge home today. She will have a PICC line placed this afternoon. All Other Systems: Reviewed and Negative Medications Current Inpatient Medications Medications (Trade) Dose Ordered Sig/Marilou Route Start Time Stop Time Status Last Admin Dose Admin Acetaminophen (Tylenol Tab) 650 mg Q4H PRN PO 12/10/16 08:00 01/09/17 07:59 12/12/16 22:24 650 MG Al Hydrox/Mg Hydrox/Simethicone (Maalox Max Susp) 15 ml Q4H PRN PO 12/10/16 08:00 01/09/17 07:59 Magnesium Hydroxide (Milk Of Magnesia Susp) 30 ml Q12H PRN PO 12/10/16 08:00 01/09/17 07:59 Ondansetron HCl (Zofran Inj) 4 mg Q6H PRN IV 12/10/16 08:00 01/09/17 07:59 Polyethylene (Miralax Powder Packet) 17 gm DAILY PRN PO 12/10/16 08:00 01/09/17 07:59 Ioversol (Optiray 320) 100 ml UD PRN IV 12/13/16 06:45 12/17/16 06:44 Ertapenem 1 gm/ Sodium Chloride 50 ml @ 120 mls/hr Q24H IV 12/13/16 16:00 12/23/16 15:59 12/14/16 16:32 120 MLS/HR Saccharomyces Boulardii (Florastor Cap) 250 mg DAILY PO 12/14/16 09:00 01/13/17 08:59 12/14/16 08:50 250 MG Heparin Sodium (Porcine) (Heparin 10 Unit/ ml 5 ml Flush) 5 ml PRN PRN FLUSH 12/14/16 12:15 01/13/17 12:14 12/14/16 12:50 5 ML Rivaroxaban (Xarelto Tab) 15 mg BID PO 12/14/16 21:00 01/13/17 20:59 Objective Vital Signs Date Time Temp Pulse Resp B/P (MAP) Pulse Ox O2 Delivery O2 Flow Rate FiO2 12/14/16 15:09 36.7 85 18 126/79 (95) 91 Room Air 12/14/16 08:40 Room Air 12/14/16 07:09 36.8 71 16 124/80 (95) 94 Room Air 12/14/16 01:34 148/75 (99) 12/13/16 23:20 Room Air 12/13/16 23:13 36.7 70 16 133/77 (95) 95 Room Air Physical Exam General Appearance: WD/WN, no apparent distress Eyes: normal inspection, sclerae normal ENT: hearing grossly normal Neck: supple, trachea midline Respiratory/Chest: no respiratory distress, no accessory muscle use Cardiovascular: regular rate, rhythm Extremities: normal range of motion, normal inspection Neurologic/Psychiatric: alert, normal mood/affect Skin: normal color, warm/dry, no rash Laboratory Results Item Value Date Time C.difficile Toxin B Gene (PCR) - Final Complete 12/14/16 0300 Stool No C. difficile toxin B gene detected Blood Culture - Preliminary Resulted 12/10/16 0716 Blood NO GROWTH TO DATE. Blood Culture - Preliminary Resulted 12/10/16 0710 Blood NO GROWTH TO DATE. Last 24 Hours Test 12/14/16 05:57 12/14/16 08:03 Activated Partial Thromboplast Time 58.6 SECONDS Partial Thromboplastin Ratio 2.3 Bedside Glucose 107 mg/dl Assessment and Plan Patient with acute diverticulitis and abdominal/pelvic abscess. Patient is tolerating IV ertapenem well. Recommend completing 14 days of IV therapy with repeat CT scan of the abdomen/pelvis prior to discontinuation. Patient is anticipating PICC line placement this afternoon. She is okay for discharge from Infectious Disease perspective following PICC placement. PROVIDER ADDENDUM: Patient reviewed with Ms. Noe. Agree with above assessment.
[2016-12-14] MEDS: RIVAROXABAN TAB 15 MG TAB PO SCH (21:23)
[2016-12-14 23:09] VITALS: BP 112/72; PULSE 70; TEMP 36.7; O2SAT 92
[2016-12-15 06:18] LABS: PARTIAL THROMBOPLASTIN RATIO 1.2
[2016-12-15] MEDS ORDERED: ERTA1INJ IV (07:12)
[2016-12-15] MEDS ORDERED: SACC250C3 PO (07:12)
[2016-12-15] MEDS ORDERED: XRL15 PO ×2 (07:12→10:47)
--- NOTE | 2016-12-15 07:15 | Discharge Instructions ---
Discharge Instructions Date of Service Dec 15, 2016. Admission Reason for Admission: Colonic Diverticular Abscess, Pulmonary Embolism Discharge Discharge Diagnosis / Problem: (1) Pulmonary embolism (2) Colonic diverticular abscess VTE Date & Time Date of VTE Diagnosis: December 10, 2016 Time of VTE Diagnosis: 06:40 Discharge Goals Goal(s): Decrease discomfort, Learn about illness, Therapeutic intervention Activity Recommendations Activity Limitations: as noted below Lifting Limitations: gradually increase as tolerated Exercise/Sports Limitations: until after follow-up appointment (walking is okay but do as tolerated) May Resume Sexual Activity: when tolerated Shower/Bathe: keep incision dry (Keep PICC site clean and dry) Driving or Machine Use: no limitations . Instructions / Follow-Up Instructions / Follow-Up Acute Diverticulitis with Abscess: IMPROVING - You will continue on an antibiotic called Ertapenem 1 g IV daily that will be given through your PICC line at the [facility] center. -- You will continue this for a total of 14 days but may need longer depending on CT scan of the abdomen to monitor the abscess - You will be provided with a prescription for pain medication to use if needed. Tylenol can be used as well but please follow dosing instructions for this - You will be provided with a prescription for probiotics. If you want you can also get over the counter probiotics of your choice. - Call Dr Huber's office at [phone] for appt to be seen next 12/22 and a follow-up CT can be scheduled for you - Recommend a low fiber diet - Call Infectious Disease, Jessie Lee PA-C as directed for follow-up appointment and monitoring of antibiotic therapy PICC Line: - Please keep this site clean and dry. When showering you can place plastic wrap over the dressing but avoid getting the dressing wet. - Monitor this area for pain, redness, swelling, or drainage. 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 - IF YOU DEVELOP CHEST PAIN OR SHORTNESS OF BREATH - PLEASE CALL [phone] Thickened Endometrium without Vaginal Bleeding: - Pelvic Ultrasound performed shows - endometrium measuring 9 mm - would recommend seeing a can coverer for a follow-up to monitor this or due further testing if necessary - Given your family history I would highly recommend having this evaluated. Follow-Up: - See Dr. Mills's office with Dr. Safia Ames on December 20 at 12:50 PM Medication Instructions: Your condition is typically treated with an anticoagulant. Anticoagulants will thin your blood to help prevent new clots. * You should take her medication exactly as directed. * Never skip a dose. * Never take a double dose. If you miss a dose, take it as soon as you remember. Call your Primary Care doctor if you experience any of the following: * Swelling or Pain in your leg * Sudden, continuous pain deep in a muscle * Pain that worsens when you are active or when you stand still for a long time * Chest Pain * Sudden Shortness of Breath * Rapid or pounding heart beat * Fainting * Dizziness * Cough with blood or bloody sputum * Sweating more than normal * Bruises * Heavy or uncontrolled bleeding * Blood in your urine, stool or vomit * Black or tarry stools Caring for Your Self at Home: * Avoid sitting, standing or lying down for long periods without moving your legs and feet * When traveling by car, stop to get out and move around at least once every 3 hours * On long airplane, train or bus rides, get up and move around when possible * If you can't get up, wiggle your toes and tighten your calves to keep your blood moving Follow Up: It is important for you to keep your follow up appointments with your medical provider. Current Hospital Diet Patient's current hospital diet: Full Liquid Diet Discharge Diet Recommended Diet: Low Fiber Diet Pending Studies Studies pending at discharge: no Medical Emergencies . Who to Call and When: Medical Emergencies: If at any time you feel your situation is an emergency, please call 911 immediately. . Non-Emergent Contact Non-Emergency issues call your: Primary Care Provider Call Non-Emergent contact if: you have a fever, your pain is concerning you, you have any medication questions . . "Provider Documentation" section prepared by Tori Green. . VTE Core Measure Inpt VTE Proph given/why not?: Unfractionated heparin SQ, Other Anticoagulation (Heparin gtt), SCD's
[2016-12-15 07:20] VITALS: BP 122/76; PULSE 75; TEMP 36.7; O2SAT 96
--- NOTE | 2016-12-15 07:50 | Surgery Progress Note ---
Surgery Progress Note Date of Service Dec 15, 2016. Subjective + feeling well, + diet (full liquids) Objective Vital Signs: Date Time Temp Pulse Resp B/P (MAP) Pulse Ox O2 Delivery O2 Flow Rate FiO2 12/15/16 07:20 36.7 75 18 122/76 (91) 96 Room Air 12/14/16 23:09 36.7 70 16 112/72 (85) 92 Room Air 12/14/16 20:20 Room Air 12/14/16 15:09 36.7 85 18 126/79 (95) 91 Room Air 12/14/16 08:40 Room Air Abdomen: non tender, non distended, soft Laboratory Results: Results Past 24 Hours Test 12/14/16 08:03 12/15/16 05:55 Range/Units Bedside Glucose 107 70-90 mg/dl Activated Partial Thromboplast Time 31.5 21.0-31.0 SECONDS Partial Thromboplastin Ratio 1.2 Assessment & Plan diverticulitis with abscess ok for d/c with PICC & Invanz outpatient ID follow-up instructions written, f/u Dr. Huber next week
[2016-12-15] MEDS ORDERED: XRL20 PO (08:32)
[2016-12-15] MEDS: SACCHAROMYCES BOUL (FLORASTOR) 250 MG CAP PO SCH (08:48)
[2016-12-15] MEDS: RIVAROXABAN TAB 15 MG TAB PO SCH (09:15)
[2016-12-15] MEDS: ERTAPENEM IV 1 GM in SODIUM CHLOR 0.9% AD-VAN 50ML 50 ML IV SCH (09:35)
[2016-12-15 10:36] VITALS: BP 122/76; PULSE 75; TEMP 36.7; O2SAT 96
--- NOTE | 2016-12-15 10:39 | Discharge Summary ---
Discharge Summary Date of Service Dec 15, 2016. Discharge Summary Admission Date: December 10, 2016 at 08:01 Discharge Date: Dec 15, 2016 Discharge Disposition: Home Principal Diagnosis: Acute Diverticulitis with Abscess and Pulmonary Emboli with Pulm Infarct Problems/Secondary Diagnoses: 1. Gestational Hypothyroidism 2. Vitiligo 3. Post-Menopausal Status Procedures: 1. CT OF THE ABDOMEN AND PELVIS WITH CONTRAST FINDINGS: Visualized portions of the lower chest again demonstrate a segmental pulmonary embolus within the right lower lobe with a small right lower lobe pulmonary infarct. The liver, spleen, adrenal glands and pancreas are normal. There are numerous subcentimeter renal lesions which are too small to characterize. However, these likely reflect cysts. There is no evidence for a bowel obstruction. Note is again made of wall thickening of the mid sigmoid colon with adjacent infiltration. There is colonic diverticulosis. There is an oral contrast and gas containing tract which extends to a central pelvic fluid and gas containing collection that measures approximately 6.1 x 2.5 cm. Allowing for measurement variability, this is likely similar to CT of December 10, 2016. This abscess is located anterior to the rectosigmoid junction. Mild endometrial thickening is again noted. No additional fluid collections are present. Pelvic infiltration is similar to prior exam. Skeletal structures are unremarkable. IMPRESSION: 1. Acute diverticulitis of the mid sigmoid colon with associated oral contrast and gas containing tract extending to a diverticular abscess within the central pelvis. Allowing for measurement variability, this abscess is similar to exam of December 10, 2016. Adjacent inflammation is similar to prior exam. 2. No change in a segmental right lower lobe pulmonary embolus with associated small right lower lobe pulmonary infarct. 2. BILATERAL LOWER EXTREMITY VENOUS DOPPLER FINDINGS: The common femoral, superficial femoral and popliteal veins were compressible. Augmentation was normal. Flow was shown within the deep calf vessels. Stranding within the bilateral superficial femoral veins likely reflects a chronic finding. There is no evidence for acute deep venous thrombus within either lower extremity. IMPRESSION: 1. No evidence of acute deep venous thrombus within the lower extremities. 2. Stranding within the bilateral superficial femoral veins which suggests chronic thrombus. 3. PELVIC ULTRASOUND FINDINGS: The uterus measures 7.2 x 3.2 x 4.4 cm. The endometrium is thickened, measuring 9 mm in thickness. Neither ovary was visualized due to suboptimal penetration. There is no free fluid. IMPRESSION: 1. Mild endometrial thickening (9 mm) in a postmenopausal patient. Correlation with history of postmenopausal bleeding is recommended. Gynecologic consultation is suggested. 2. Nonvisualization of the ovaries. 4. CHEST 2 VIEWS ROUTINE FINDINGS: Lung volumes are normal. There is no pneumothorax or pleural effusion. Contrast within the renal collecting systems is from recent contrast-enhanced CT. There is no evidence of pulmonary edema. Cardiac size is normal. Mediastinal contours are normal. The right lower lobe airspace opacity shown on abdominal CT is not well visualized on this exam. IMPRESSION: No acute cardiopulmonary findings. Consultations: 1. General Surgery - Dr. Huber 2. Infectious Disease - Jessie Noe PA-C Medication Reconciliation New Medications: Rivaroxaban (Xarelto) 20 Mg Tab 20 MG PO DAILY for 30 Days, #30 TABS 2 Refills start in 21 days after the 15mg BID is complete Rivaroxaban (Xarelto) 15 Mg Tab 15 MG PO BID for 30 Days, #60 TAB 2 Refills Saccharomyces Boulardii (Florastor) 250 Mg Cap 250 MG PO DAILY for 30 Days, #30 CAP Continued Medications: Ertapenem Sodium (Invanz) 1 Gm Inj 1 GM IV Q24H for 8 Days, VIAL Discharge Exam Review of Systems: Constitutional: No fever, No chills Eyes: No worsening of vision ENT: No nasal symptoms, No sore throat, No trouble swallowing Respiratory: No cough, No shortness of breath Cardiovascular: No chest pain Abdomen: No pain, No nausea, No vomiting, No diarrhea, No constipation Musculoskeletal: No swelling, No calf pain Genitourinary - Female: No dysuria Neurologic: No vertigo Hematologic / Lymphatic: No abnormal bleeding/bruising Integumentary: No rash Physical Exam: General Appearance: WD/WN, no apparent distress Eyes: sclerae normal ENT: hearing grossly normal Neck: supple, no JVD, trachea midline Respiratory/Chest: lungs clear, normal breath sounds, no respiratory distress, no accessory muscle use Cardiovascular: regular rate, rhythm, no gallop, no murmur Abdomen / GI: normal bowel sounds, non tender, soft Extremities: no calf tenderness, no pedal edema Neurologic/Psychiatric: no motor/sensory deficits, alert, oriented x 3 Skin: normal color, warm/dry Hospital Course ADMISSION: Ms. Guzmán is a 66 y/o Post-Menopausal female with an unremarkable PMHx except for vitiligo who presents to the ED complaining of abdominal pain x 3 days. Pain came on suddenly and originated periumbilically then moved to the RLQ which it has remained. She describes the pain as a waxing and waning sharp sensation that can exacerbate to a 10/10. Aggravated by palpation and alleviated minimally with Tylenol. Associated nausea and vomiting with last emesis on . Associated poor oral intake and constipation with last BM on without evidence of melena/hematochezia. She reports similar symptoms in September that lasted a couple days and subsided but the pain was not as severe at that time. After those symptoms subsided she felt her normal self up until these last couple of days. ED imaging revealed acute diverticulitis with fluid and gas filled abscess. Incidentally, R segmental pulmonary emboli noted with RLL infarct. She denies H/O clotting disorders or DVT/PE personally and in the family. As well, CT showed a thickened endometrium and patient denies post-menopausal bleeding. Does report a FMHx of a mother with cancerous uterine tumor who was on hormonal replacement therapy. HOSPITAL COURSE: Ms. Guzmán was admitted for acute diverticulitis with colonic abscess with incidental finding of PE with RLL infarct and chronic thrombus of superficial bilateral femorals. She was initiated on Zosyn and Flagyl and converted to Ertapenem 1 g IV daily to complete a 14 day course (December 23). She will receive daily infusions at the [facility]. PICC line placed in RUE. She will follow-up with ID and Gen Surg next week for repeat CT Abd for monitoring of abscess. Possible need for longer Abx vs interventional radiology pending imaging and response. She was initiated on Xarelto 15 mg BID x 21 days then converted to 20 mg daily to finish a 3 month course for provoked DVT/PE. Incidentally, imaging revealed a thickened endometrium with F/U pelvic U/S reporting 9 mm. Did recommend outpatient evaluation given age and family history. She denies H/O post-menopausal bleeding. She is afebrile, without leukocytosis, and abdominal pain free. She is optimal for D/C home with outpatient follow-up. Total Time Spent: Greater than 30 minutes This includes examination of the patient, discharge planning, medication reconciliation, and communication with other providers. Discharge Instructions Please refer to the electronic Patient Visit Report (Discharge Instructions) for additional information. Additional Copies To Krunal Kimbrough M.D.; Safia Ames MD
[2016-12-18] MEDS ORDERED: RIVA1TAB4 PO (09:49)
[2016-12-18] MEDS ORDERED: MISCCAP80 PO (09:49)
[2016-12-24] MEDS ORDERED: lovenox (08:25)
== END 2016-12-15 12:15 | disposition home or self-care (01) | DRG 299 ==
LOC: ENRESERVDT → ENRESERVTM → C.EDB 05:39 → C.MED 08:01 → CMPBEDREQ 09:48 → C.MED 12-11 05:12 → C.MSW 12-12 15:56
PROVIDERS: ADMIT Family Medicine; ATTEND Internal Medicine
PROC: 02HV33Z Insertion of Infusion Device into Superior Vena Cava, Percutaneous Approach (ICD-10-PCS; principal; 2016-12-14)
DX: I82.513 Chronic embolism and thrombosis of femoral vein, bilateral (principal); I26.99 Other pulmonary embolism without acute cor pulmonale; K57.20 Diverticulitis of large intestine with perforation and abscess without bleeding; R93.8 Abnormal findings on diagnostic imaging of other specified body structures; K59.00 Constipation, unspecified; R19.7 Diarrhea, unspecified; L80 Vitiligo; Z83.79 Family history of other diseases of the digestive system; Z83.3 Family history of diabetes mellitus; Z82.49 Family history of ischemic heart disease and other diseases of the circulatory system; Z91.048 Other nonmedicinal substance allergy status; Z78.0 Asymptomatic menopausal state; Z80.49 Family history of malignant neoplasm of other genital organs

== ENCOUNTER → 2016-12-21 | Outpatient (CLI) | payer BC ==
[~2016-12-21] MED LIST: ERTA1INJ IV; MISCCAP80 PO; OPTIRAY 320 IV PRN; RIVA1TAB4 PO; lovenox
--- NOTE | 2016-12-21 16:12 | DIAGNOSTIC IMAGING REPORT ---
CT OF THE ABDOMEN AND PELVIS WITH CONTRAST CLINICAL HISTORY: Diverticular abscess. COMPARISON STUDY: CT of the abdomen and pelvis December 13, 2016. TECHNIQUE: Following IV administration of 116 mL of Optiray-320, axial images of the abdomen and pelvis were obtained from the lung bases to the proximal femurs. Images were reviewed in the axial, sagittal, and coronal planes. IV contrast was administered without complication. Oral contrast was administered. CT DOSE: 254.51 mGy.cm FINDINGS: The previously described segmental pulmonary embolus within the right lower lobe shown on prior exam has decreased in size. There is a resolving right lower lobe pulmonary infarct. The liver, spleen, adrenal glands and pancreas are unremarkable. Hypodense bilateral renal lesions suggest cyst. Several are too small to characterize. There is no evidence for a bowel obstruction. Note is again made of sigmoid diverticulosis. Note is made of inflammation centered on the mid sigmoid colon with a gas and oral contrast containing tract extends to a central pelvic fluid collection which contains fluid and oral contrast. This abscess has increased in size since exam of December 13, 2016, now measuring 8.2 x 3.6 cm. It previously measured 6.1 x 2.5 cm. There is a large amount of contrast within this collection which is increased. This reflects an abscess which contained perforation. The abscess is complex and may be multiloculated. Adjacent infiltration has slightly increased. The appendix is normal. No suspicious skeletal lesions are identified. IMPRESSION: 1. Moderate increase in size of a diverticular abscess within the central pelvis which contains oral contrast and fluid, now measuring 8.2 x 3.6 cm. This is secondary to acute diverticulitis of the mid sigmoid colon with associated gas and oral contrast tract which extends to the abscess consistent with a contained perforation. Overall, the findings have progressed since exam of December 13, 2016. 2. Resolving small segmental right lower lobe probably embolus and a resolving right lower lobe pulmonary infarct. Electronically signed by: Vasile Sarabia M.D. 12/21/2016 4:10 PM Dictated Date/Time: 12/21/2016 4:00 PM
== END | disposition home or self-care (01) ==
LOC: C.CTS 15:34
PROVIDERS: ATTEND Physician Assistant
DX: K57.30 Diverticulosis of large intestine without perforation or abscess without bleeding (principal)

== ENCOUNTER → 2016-12-25 | Outpatient (CLI) | payer BC ==
[~2016-12-25] MED LIST changes: -ERTA1INJ IV; -OPTIRAY 320 IV PRN; -RIVA1TAB4 PO
--- NOTE | 2016-12-26 08:02 | MAMMOGRAPHY REPORT ---
BILATERAL DIGITAL SCREENING MAMMOGRAM WITH CAD: 12/25/2016 CLINICAL HISTORY: Routine screening. Patient has no complaints. TECHNIQUE: Bilateral CC and MLO views were obtained. Current study was also evaluated with a Compute r Aided Detection (CAD) system. COMPARISON: Comparison is made to exams dated: 04/10/2012 mammogram, 04/03/2011 mammogram, 10/08/2013 m ammogram, 03/31/2010 mammogram - [facility], 10/22/2008, and 08/06/2007. BREAST COMPOSITION: The tissue of both breasts is heterogeneously dense, which may obscure small mas ses. FINDINGS: There is a possible clustered microcalcifications in the upper outer posterior right breas t, for which additional spot magnification views are recommended. No other suspicious mass, architectural distortion or cluster of microcalcifications is seen bilatera lly. IMPRESSION: ACR BI-RADS CATEGORY 0: INCOMPLETE EVALUATION: NEED ADDITIONAL IMAGING EVALUATION The possible clustered microcalcifications in the upper outer posterior right breast need additional evaluation. The patient will be called to schedule an appointment. Approximately 10% of breast cancers are not detected with mammography. A negative mammographic report should not delay biopsy if a clinically suggestive mass is present. Raquel Hodgson M.D. ay/:12/25/2016 15:37:43 Hay Chopper: Surekha FRANKLIN(Grace)(M), [facility] letter sent: Addl Imaging 0 BI-RADS Code: ACR BI-RADS Category 0: Incomplete Evaluation: Need Additional Imaging Evaluation
== END ==
LOC: C.MAMM 15:02
PROVIDERS: ATTEND Family Medicine
DX: Z12.31 Encounter for screening mammogram for malignant neoplasm of breast (principal)

== ENCOUNTER → 2017-01-04 | Outpatient (CLI) | payer BC ==
--- NOTE | 2017-01-04 13:39 | MAMMOGRAPHY REPORT ---
UNILATERAL RIGHT DIGITAL DIAGNOSTIC MAMMOGRAM: 01/04/2017 CLINICAL HISTORY: Callback from screening mammogram for right breast calcifications. TECHNIQUE: Spot magnification right cc and ML views were obtained. COMPARISON: Comparison is made to exams dated: 12/25/2016 mammogram, 10/08/2013 mammogram, 04/03/2011 m ammogram, 10/06/2010 ultrasound, 10/06/2010 mammogram, and 04/04/2010 ultrasound - [facility]. BREAST COMPOSITION: The tissue of the right breast is heterogeneously dense, which may obscure small masses. FINDINGS: There is a small 6 mm cluster of calcifications in the right upper outer quadrant, which c onsist of a few larger punctate calcifications as well as faint smaller punctate calcifications. The calcifications are likely stable dating back to at least the 2011 exam, although it is difficult to make an accurate comparison to the priors due to differences in mammographic technique (currently usi ng Hologic appointment, previously using [employer] equipment). The calcifications are probably benign given the morphology and probable stability. Recommend short interval follow-up to confirm stability on s pot magnification views. IMPRESSION: ACR-BI-RADS CATEGORY 3: PROBABLY BENIGN Small cluster of punctate calcifications in the right upper outer quadrant is likely stable dating ba ck to the 2011 exam, and is therefore probably benign. Recommend follow-up diagnostic mammograms of the right breast in 6 months to confirm stability on spot magnification views. The patient has been verbally notified of the results. Approximately 10% of breast cancers are not detected with mammography. A negative mammographic report should not delay biopsy if a clinically suggestive mass is present. Sabina Burgos M.D. ah/:01/04/2017 08:20:54 Immigration Paralegal: Beatriz FRANKLIN(R)(M), [facility] letter sent: Follow Up Recommended 3 BI-RADS Code: ACR-BI-RADS Category 3: Probably Benign
== END | disposition home or self-care (01) ==
LOC: C.MAMM 07:55
PROVIDERS: ATTEND Family Medicine
DX: R92.1 Mammographic calcification found on diagnostic imaging of breast (principal)

== ENCOUNTER → 2017-02-19 | Outpatient (CLI) | payer BC | END | disposition home or self-care (01) | LOC: C.PATHSPEC 17:44 | PROVIDERS: ATTEND Obstetrics & Gynecology | DX: R93.8 Abnormal findings on diagnostic imaging of other specified body structures (principal) ==

== ENCOUNTER → 2017-08-13 | Outpatient (CLI) | payer OTHER ==
--- NOTE | 2017-08-13 15:53 | MAMMOGRAPHY REPORT ---
UNILATERAL RIGHT DIGITAL DIAGNOSTIC MAMMOGRAM TOMOSYNTHESIS WITH CAD: 08/13/2017 CLINICAL HISTORY: Short interval follow-up of right breast calcifications. TECHNIQUE: Breast tomosynthesis in addition to standard 2D mammography was performed. Current study was also evaluated with a Computer Aided Detection (CAD) system. Right CC and MLO 2-D and tomosynthe sis images and spot magnification right cc and ML views were obtained. COMPARISON: Comparison is made to exams dated: 01/04/2017 mammogram, 12/25/2016 mammogram, 10/08/2013 m ammogram, 04/10/2012 mammogram, 04/03/2011 mammogram, and 10/06/2010 ultrasound - [facility]. BREAST COMPOSITION: The tissue of the right breast is heterogeneously dense, which may obscure small masses. FINDINGS: Spot magnification views again demonstrate a small 5 mm cluster of calcifications within t he right upper outer quadrant. The calcifications are stable compared to spot magnification views da brigitte 01/04/2017. In retrospect, the calcifications were likely present dating back to at least the 2 exam, and are therefore probably benign. The remainder of the right breast is stable compared to p rior exams, without suspicious masses, calcifications, or areas of architectural distortion noted. 1 1 mm asymmetry within the right inferior breast on the MLO view is stable compared to the 2011 exam. IMPRESSION: ACR-BI-RADS CATEGORY 3: PROBABLY BENIGN Small cluster of calcifications within the right upper outer quadrant is stable compared to the December 2016 spot magnification views, and is likely stable dating back to the 2011 exam. The calcifications are probably benign and recommend bilateral diagnostic tomosynthesis mammograms in 6 months, to reev aluate the right breast calcifications and for routine mammography of the left breast. The patient has been verbally notified of the results. Approximately 10% of breast cancers are not detected with mammography. A negative mammographic report should not delay biopsy if a clinically suggestive mass is present. Sabina Burgos M.D. /:08/13/2017 10:03:34 Employment Interviewer: Sumi FRANKLIN(Grace)(M), [facility] letter sent: Follow Up Recommended 3 BI-RADS Code: ACR-BI-RADS Category 3: Probably Benign
== END | disposition home or self-care (01) ==
LOC: C.MAMM 09:37
PROVIDERS: ATTEND Family Medicine
DX: R92.1 Mammographic calcification found on diagnostic imaging of breast (principal)